=== PATIENT | female | born 1985 | race Caucasian/White ===

== ENCOUNTER 2021-05-06 16:56 | Emergency (ER) | payer SELFPAY ==
[~2021-05-06] VITALS: Ht 160 cm; Wt 67.6 kg
[~2021-05-06 16:56] MED LIST: IBUP1TAB12 PO
--- NOTE | 2021-05-06 18:13 | PHYS DOC ---
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 She is an incredibly poor historian. She presents here with pain at her left nephrostomy tube site. She reports that someone in the emergency department placed the nephrostomy tube here last week. She cannot tell me the names of any physicians that she is interacted with at this facility. She has not followed up with anyone since she was here. She reports that this was just last week. I was able to review notes, and she left AGAINST MEDICAL ADVICE on 04/07/2021. She had been admitted on 04/04/2021. She was admitted for left hydronephrosis and pyelonephritis. Interventional radiology placed a nephrostomy tube. She has a history of cervical cancer, for which she had previously has been seen at [facility], and she had also previously been seen at [facility]. Notes reviewed from here report that she had been fired from practices at [facility] at and at [facility]. She reports that she has had subjective fevers and chills, no documented fever. She reports nausea, no vomiting. She is unable to tell me when her last bowel movement was. She reports diffuse pain in her entire abdomen as well as left flank pain. She denies chest pain or dyspnea. She has been having yellow urine drainage from her nephrostomy. She reports that she "bleeds all the time" in regards to her vaginal bleeding. She is unable to articulate with any remote certainty when her last menstrual period might have been. She has had what sounds like bilateral salpingectomy as well as an uterine myomectomy. Discharge summary/AMA note indicates that she was given multiple resources for outpatient follow-up, but she has made no attempt to do this. She reports that she and her boyfriend have been trying to dress her nephrostomy tube site and clean the site, and she has multiple layers of wadded up tape covering the skin around the nephrostomy tube. Review of Systems: Review of Systems: Constitutional: Subjective fevers and chills HENT: Denies sore throat. [] Respiratory: Denies cough or shortness of breath. [] Cardiovascular: Denies chest pain or edema. [] GI: Abdominal pain, nausea, denies bowel habit changes, denies vomiting : Dysuria, cloudy urine, pain at left flank and nephrostomy tube site Musculoskeletal: Left flank pain, diffuse myalgias Integument: Denies rash or open wounds or skin redness Neurologic: Denies headache, focal weakness or sensory changes. [] Psychiatric: Anxiety Heart Score: C/O Chest Pain: No Risk Factors: Risk Factors: DM, Current or recent (<one month) smoker, HTN, HLP, family history of CAD, obesity. Risk Scores: Score 0 - 3: 2.5% MACE over next 6 weeks - Discharge Home Score 4 - 6: 20.3% MACE over next 6 weeks - Admit for Clinical Observation Score 7 - 10: 72.7% MACE over next 6 weeks - Early Invasive Strategies Allergies: Allergies: Allergies Coded Allergies Type Severity Reaction Last Updated Verified haloperidol Allergy Severe 05/06/21 Yes diphenhydramine Allergy Intermediate 05/06/21 Yes fentanyl Allergy Intermediate 05/06/21 Yes morphine Allergy Intermediate 05/06/21 Yes prochlorperazine Allergy Intermediate 05/06/21 Yes Physical Exam: PE: Constitutional: Well developed, well nourished, no acute distress, non-toxic appearance. [] HENT: Normocephalic, atraumatic Eyes: Conjunctiva normal, no discharge. Sclera are anicteric. Neck: Normal range of motion, no tenderness, supple, no stridor. No meningisus. Trachea is midline. Cardiovascular:Heart rate regular rhythm, +2 radial and +2 posterior tibial pulses bilateral Lungs & Thorax: Bilateral breath sounds clear to auscultation [] Abdomen: Abdomen is soft, nondistended, normal bowel sounds, diffuse and nonfocal tenderness to palpation. Left CVA tenderness is noted. No flank or abdominal ecchymoses are noted. No palpable pulsatile mass noted. Skin: Warm, dry, no erythema, no rash. There is no warmth, erythema or drainage around the left flank/nephrostomy tube site Back: Left CVA tenderness. Nephrostomy tube is in place on her left flank, there is no warmth, erythema, no purulent drainage or bleeding around the tube site Extremities: No tenderness, no cyanosis, no clubbing, ROM intact, no edema. Calf tenderness Neurologic: She is awake, alert, oriented x3, ambulatory to steady gait, moves all 4 extremities equally, gross sensation is intact, gross motor intact, speech is fluent Psychologic: Anxious EKG: EKG: [] Radiology/Procedures: Radiology/Procedures: IMAGING REPORT Signed PATIENT: SARA AQUINO ACCOUNT: [id number] : 1985 LOCATION: ER AGE: 36 SEX: F EXAM STATUS: REG ER ORD. PHYSICIAN: ROX WHEELER DO REASON: abd pain, left nephrostomy PROCEDURE: CT ABD PELV W/ IV CONTRST ONLY Exam: CT abdomen/pelvis with intravenous contrast Indication: Abdominal pain, left nephrostomy Comparison: CT abdomen pelvis 04/03/2021 Technique: Helical CT imaging performed of the abdomen and pelvis after the intravenous administration of 75 mL Omnipaque 300 contrast. Sagittal and coronal reformats were obtained. One or more of the following individualized dose reduction techniques were utilized for this examination: 1. Automated exposure control 2. Adjustment of the mA and/or kV according to patient size 3. Use of iterative reconstruction technique. Findings: Lower chest: Normal. Liver: Normal. Gallbladder/Biliary Tree: Normal. Pancreas: Normal. Spleen: Normal. Adrenal Glands: Normal. Kidneys/Ureters/Bladder: There has been placement of a left percutaneous nephrostomy catheter, in appropriate position. Left hydroureteronephrosis has resolved. There is mild residual prominence of the distal left ureter, which is partially obscured by soft tissue prominence at the cervix. Right kidney and right ureter are normal. Bladder is normal. Reproductive Organs: Uterus is present. Ill-defined soft tissue prominence at the cervix on the left, unchanged. Ovaries are not visualized. Stomach, small bowel, and colon: The stomach is normal. No small bowel obstruction. There are a few prominent loops of small bowel in the left upper quadrant without transition point.. The appendix is normal. Mild diffuse wall thickening versus incomplete distention of the left hemicolon, unchanged. Vasculature: Abdominal aorta is normal in caliber. Lymph Nodes: Abnormal enlarged left external iliac chain lymph node has decreased in size, now 2.6 x 2.2 cm, previously 2.9 x 2.6 cm. Unchanged mildly enlarged bilateral pelvic sidewall lymph nodes measuring up to 1 cm short axis. Additional small left common iliac chain and periaortic lymph nodes are unchanged. Peritoneum and retroperitoneum: No free fluid or free air. Bones: No acute osseous abnormality. Impression: 1. Interval placement of left percutaneous nephrostomy. Resolution of left hydronephrosis. Mild left renal atrophy. 2. Ill-defined soft tissue prominence along the left aspect of the cervix, likely corresponding with the patient's reported cervical cancer. 3. Mild lymphadenopathy in the pelvis with slightly decreased size of a large abnormal left external iliac chain lymph node and other smaller unchanged left iliac chain and pelvic sidewall lymph nodes. 4. Mild diffuse wall thickening versus incomplete distention of the left hemicolon, unchanged. Electronically signed by: Cornelia Erwin MD (05/06/2021 9:16 PM) [id number] DICTATED and SIGNED BY: CORNELIA ERWIN MD DATE: 05/06/219245KTI6 0 Course & Med Decision Making: Course & Med Decision Making Pertinent Labs and Imaging studies reviewed. (See chart for details) The patient was given IV fluids, IV Reglan, as well as IV Dilaudid. She has not vomited here. She remained stable, vital signs are stable, she has no evidence of acute surgical abdominal exam. Nephrostomy tube is in place, there is no evidence of any recurrent hydronephrosis. Laboratory exams are unremarkable. She manifest no evidence of obvious acute infection. I have discussed all of the findings, differential diagnosis and plan of care with her. I contacted the on-call PA for urology, she reports that the patient will be able to follow-up in the office for further discussion of care. I gave the patient the number for the urology office. The nephrostomy tube may stay in place for up to 12 weeks. She has had this in place for about 4 weeks now at this time. I told the patient that she absolutely must follow-up with urology, she [place] must follow- up with [facility] and [facility]. She reports that she absolutely refused to go back to [facility] or to [facility]. I told her that she may want to contact [facility] to see if they are able to help her. She was told to contact Dr. Coto, who followed her here while she was admitted to the hospital, to see if he may assist her in appropriate follow-up measures as well. Currently there is no indication for admission to the hospital based on her current clinical presentation. I did prescribe a small amount of [place] for discharge, as well as Reglan for her nausea and vomiting symptoms. I requested that the nurses give her dressing supplies for home. Strict return precautions are given, she verbalizes understanding. Dragon Disclaimer: Abiel Disclaimer: This electronic medical record was generated, in whole or in part, using a voice recognition dictation system. Departure Departure Impression: Primary Impression: Nephrostomy status Additional Impressions: Left flank pain Hydronephrosis of left kidney History of cervical cancer Disposition: 01 HOME / SELF CARE / HOMELESS Condition: STABLE Referrals: NO PCP (PCP) VERONICA HERNANDEZ MD,ANAY Yanes MD Patient Instructions: Nephrostomy, Care After Additional Instructions: Please keep your tube in place. Keep the skin around the tube clean and dry. Use the medication as directed. Stay well hydrated. Please contact the urology clinic ([phone]) this week to arrange for follow up. Please also follow up with Dr. Coto to help with your cervical cancer. Return for fever of 100.4 or higher, you develop severe skin redness, swelling, yellow or green drainage from the tube site, if he develop more severe abdominal pain, uncontrolled vomiting, dehydration or other concerns. Scripts Metoclopramide Hcl (REGLAN) 10 Mg Tablet 1 TAB PO TID for vomiting, #20 TAB 0 Refills before food and bedtime Prov: ROX WHEELER DO 05/06/21 Hydrocodone Bit/Acetaminophen (HYDROCODONE-APAP 5-325 ) 1 Tab Tablet 1 TAB PO PRN Q6HRS PRN for PAIN, #15 TAB 0 Refills Prov: ROX WHEELER DO 05/06/21 ROX WHEELER DO May 06, 2021 18:13
[2021-05-06] MEDS ORDERED: METOCLOPRAMIDE HCL 10 MG/2 ML VIAL. IVP ONE (18:30)
[2021-05-06] MEDS ORDERED: IV NORMAL SALINE 1000ML BAG 1,000 ML IV ONE (18:30)
[2021-05-06] MEDS ORDERED: HYDROmorphone 2 MG/ML INJ. IVP ONE (18:45)
[2021-05-06 19:00] LABS: AMPHETAMINE/METHAMPHETAMINE NEG (NEG); BARBITURATES NEG (NEG); BENZODIAZEPINES NEG (NEG); CANNABINOIDS NEG (NEG); COCAINE NEG (NEG); METHADONE NEG (NEG); OPIATES NEG (NEG); PHENCYCLIDINE NEG (NEG)
[2021-05-06 19:03] LABS: BILIRUBIN,URINE NEGATIVE (NEG); CLARITY,URINE CLEAR; COLOR,URINE YELLOW; NITRITE,URINE NEGATIVE (NEG); PROTEIN,URINE 30 mg/dL (NEG-TRACE); UROBILINOGEN,URINE 0.2 mg/dL (0.2 mg/dL)
[2021-05-06 19:04] LABS: RBC,URINE 20-40 /HPF (0-2)
[2021-05-06 19:05] LABS: BACTERIA,URINE FEW /HPF (0-FEW)
[2021-05-06 19:13] LABS: BASO % 1 % (0-3); EOS % 0 % (0-3); HEMATOCRIT 46.3 % (36.0-47.0); HEMOGLOBIN 15.6 g/dL (12.0-15.5); LYMPH # 1.9 x10^3/uL (1.0-4.8); LYMPH % 26 % (24-48); MEAN CORPUSCULAR HEMOGLOBIN 27 pg (25-35); MEAN CORPUSCULAR HGB CONC 34 g/dL (31-37); MEAN CORPUSCULAR VOLUME 81 fL (79-100); MONO # 0.7 x10^3/uL (0.0-1.1); MONO % 10 % (0-9); NEUT # 4.5 x10^3/uL (1.8-7.7); NEUT % 62 % (31-73); PLATELET COUNT 326 x10^3/uL (140-400); RED BLOOD COUNT 5.73 x10^6/uL (3.50-5.40); RED CELL DISTRIBUTION WIDTH 15.7 % (11.5-14.5); WHITE BLOOD COUNT 7.2 x10^3/uL (4.0-11.0)
[2021-05-06 19:14] LABS: BASO # 0.1 x10^3/uL (0.0-0.2)
[2021-05-06 19:23] LABS: PREG TEST PT QUAL NEGATIVE (NEG)
[2021-05-06 19:32] LABS: CALCIUM 8.7 mg/dL (8.5-10.1); CREATININE 0.9 mg/dL (0.6-1.0); GFR 70.1; POTASSIUM 4.6 mmol/L (3.5-5.1)
[2021-05-06 19:38] LABS: ALBUMIN 4.1 g/dL (3.4-5.0); MAGNESIUM 2.2 mg/dL (1.8-2.4); TOTAL BILIRUBIN 0.1 mg/dL (0.2-1.0); TOTAL PROTEIN 8.3 g/dL (6.4-8.2)
[2021-05-06] MEDS ORDERED: IOHEXOL 300 MG/ML 100ML VIAL. IV ONE (20:00)
--- NOTE | 2021-05-06 21:18 | RAD ---
Exam: CT abdomen/pelvis with intravenous contrast Indication: Abdominal pain, left nephrostomy Comparison: CT abdomen pelvis 04/03/2021 Technique: Helical CT imaging performed of the abdomen and pelvis after the intravenous administratio n of 75 mL Omnipaque 300 contrast. Sagittal and coronal reformats were obtained. One or more of the following individualized dose reduction techniques were utilized for this examinat ion: 1. Automated exposure control 2. Adjustment of the mA and/or kV according to patient size 3. Use of iterative reconstruction technique. Findings: Lower chest: Normal. Liver: Normal. Gallbladder/Biliary Tree: Normal. Pancreas: Normal. Spleen: Normal. Adrenal Glands: Normal. Kidneys/Ureters/Bladder: There has been placement of a left percutaneous nephrostomy catheter, in rajat ropriate position. Left hydroureteronephrosis has resolved. There is mild residual prominence of the distal left ureter, which is partially obscured by soft tissue prominence at the cervix. Right kidney and right ureter are normal. Bladder is normal. Reproductive Organs: Uterus is present. Ill-defined soft tissue prominence at the cervix on the left, unchanged. Ovaries are not visualized. Stomach, small bowel, and colon: The stomach is normal. No small bowel obstruction. There are a few p rominent loops of small bowel in the left upper quadrant without transition point.. The appendix is n ormal. Mild diffuse wall thickening versus incomplete distention of the left hemicolon, unchanged. Vasculature: Abdominal aorta is normal in caliber. Lymph Nodes: Abnormal enlarged left external iliac chain lymph node has decreased in size, now 2.6 x 2.2 cm, previously 2.9 x 2.6 cm. Unchanged mildly enlarged bilateral pelvic sidewall lymph nodes shnae uring up to 1 cm short axis. Additional small left common iliac chain and periaortic lymph nodes are unchanged. Peritoneum and retroperitoneum: No free fluid or free air. Bones: No acute osseous abnormality. Impression: 1. Interval placement of left percutaneous nephrostomy. Resolution of left hydronephrosis. Mild left renal atrophy. 2. Ill-defined soft tissue prominence along the left aspect of the cervix, likely corresponding with the patient's reported cervical cancer. 3. Mild lymphadenopathy in the pelvis with slightly decreased size of a large abnormal left external iliac chain lymph node and other smaller unchanged left iliac chain and pelvic sidewall lymph nodes. 4. Mild diffuse wall thickening versus incomplete distention of the left hemicolon, unchanged. Electronically signed by: Cornelia Erwin MD (05/06/2021 9:16 PM) [id number]
[2021-05-06] MEDS ORDERED: FUROSEMIDE 20 MG/2 ML VIAL. IVP ONE (21:30)
[2021-05-06] MEDS ORDERED: HYDROcodone/APAP 5/325MG 1 TAB TABLET PO ONE (23:00)
[2021-05-06] MEDS ORDERED: METO10TA81 PO (23:05)
[2021-05-06] MEDS ORDERED: HYDR-2761 PO (23:05)
[2021-05-06 23:30] VITALS: BP 135/96
== END 2021-05-07 00:08 | disposition home or self-care (01) ==
LOC: ER 16:56
DX: N13.30 Unspecified hydronephrosis (principal); R10.84 Generalized abdominal pain; Z93.6 Other artificial openings of urinary tract status; Z85.41 Personal history of malignant neoplasm of cervix uteri; F17.200 Nicotine dependence, unspecified, uncomplicated
CPT/HCPCS: 36415; 74177; 80053; 80307; 81001; 83605; 83690; 83735; 84703; 85025; 87040; 96361; 96374; 96375; 99285; G0480; J1170; J2765; J7030; Q9967

== ENCOUNTER 2021-07-29 00:46 | Inpatient (IN) | payer SELFPAY ==
[~2021-07-29] VITALS: Ht 160 cm; Wt 67.1 kg
[2021-07-29] VITALS (12 sets, daily range): BP systolic 112–152; BP diastolic 72–100
[~2021-07-29 00:46] MED LIST changes: +HYDR-2761 PO; +METO10TA81 PO
[2021-07-29 01:21] LABS: BASO # 0.1 x10^3/uL (0.0-0.2); BASO % 0 % (0-3); EOS # 0.1 x10^3/uL (0.0-0.7); EOS % 0 % (0-3); HEMATOCRIT 42.3 % (36.0-47.0); HEMOGLOBIN 14.2 g/dL (12.0-15.5); LYMPH % 5 % (24-48); MEAN CORPUSCULAR HEMOGLOBIN 27 pg (25-35); MEAN CORPUSCULAR HGB CONC 34 g/dL (31-37); MEAN CORPUSCULAR VOLUME 80 fL (79-100); MONO # 1.5 x10^3/uL (0.0-1.1); MONO % 7 % (0-9); NEUT % 88 % (31-73); PLATELET COUNT 496 x10^3/uL (140-400); RED BLOOD COUNT 5.31 x10^6/uL (3.50-5.40); RED CELL DISTRIBUTION WIDTH 14.7 % (11.5-14.5); WHITE BLOOD COUNT 21.6 x10^3/uL (4.0-11.0)
[2021-07-29] MEDS ORDERED: HYDROmorphone 2 MG/ML INJ. IVP ONE ×2 (01:30→03:00)
[2021-07-29] MEDS ORDERED: ONDANSETRON PF 4 MG/2 ML VIAL. IVP ONE ×2 (01:30→04:30)
[2021-07-29 01:32] LABS: CALCIUM 8.7 mg/dL (8.5-10.1); CREATININE 1.1 mg/dL (0.6-1.0); GFR 55.6; POTASSIUM 3.9 mmol/L (3.5-5.1)
[2021-07-29 01:35] LABS: PREG TEST PT QUAL NEGATIVE (NEG)
[2021-07-29 01:38] LABS: ALBUMIN 3.5 g/dL (3.4-5.0); ALBUMIN/GLOBULIN RATIO 0.9 (1.0-1.7); TOTAL BILIRUBIN 0.3 mg/dL (0.2-1.0); TOTAL PROTEIN 7.6 g/dL (6.4-8.2)
[2021-07-29] MEDS ORDERED: cefTRIAXone IV Push 1 GM VIAL. IVP ONE (02:00)
[2021-07-29] MEDS ORDERED: IOHEXOL 300 MG/ML 100ML VIAL. IV ONE (02:00)
[2021-07-29] MEDS ORDERED: CONTRAST GIVEN. MC PRN ×2 (02:00→14:00)
--- NOTE | 2021-07-29 02:49 | RAD ---
EXAM: CT Abdomen and Pelvis with IV contrast CLINICAL HISTORY: Reason: L nephr tube pulled out; L flank pain; suspect hydroureteronephrosis / Spl. Instructions: OMNI 300,60ML / History: . COMPARISON: none TECHNIQUE: Helical CT of the abdomen and pelvis was performed following the administration of intrave nous contrast. Axial, coronal and sagittal reformatted images were generated. PQRS compliance statement - One or more of the following individualized dose reduction techniques wer e utilized for this study: 1. Automated exposure control 2. Adjustment of the mA and/or kV according to patient size 3. Use of iterative reconstruction technique FINDINGS: Lower Chest: Lung bases are clear. Abdomen and Pelvis: No focal liver lesion. Gallbladder is normal. No biliary ductal dilatation. Pancreas, spleen is unrem arkable. Adrenal glands are normal. There is infiltration about the left kidney. Moderate left hydronephrosis and hydroureter. Soft tissu e infiltration in the region of the cervix. Left nephrostomy tube is seen. Appendix is not seen. Moderate colonic stool content is seen. No small or large bowel dilatation. No bowel obstruction. Pelvic lymphadenopathy is again seen, mildly progressed. Adjacent to the right cecum there is a 2.8 x 2.5 cm mass. Right pelvic chest wall lymph node measures 1.7 x 1.2 cm, previously 1.4 x 1 cm. Bones: No aggressive osseous lesion is seen. IMPRESSION: 1. There is moderate left hydronephrosis and hydroureter to the level of the soft tissue density at the region of the cervix likely cervical cancer. Infiltration about the left kidney may be seen with superimposed pyelonephritis, new compared to 05/06/2021. 2. Iliac chain and pelvic sidewall lymphadenopathy is again seen, mildly progressed compared to 05/06. Electronically signed by: Tray Arevalo MD (07/29/2021 2:46 AM) [facility]
[2021-07-29] MEDS ORDERED: IV DEXTROSE 5%-LACT RINGERS 1,000 ML IV ONE ×2 (03:00→05:30)
[2021-07-29 03:57] LABS: BARBITURATES NEG (NEG); BENZODIAZEPINES NEG (NEG); CANNABINOIDS NEG (NEG); COCAINE NEG (NEG); METHADONE NEG (NEG); OPIATES POS (NEG); PHENCYCLIDINE NEG (NEG)
[2021-07-29 04:15] LABS: AMPHETAMINE/METHAMPHETAMINE NEG (NEG)
[2021-07-29 04:21] LABS: BACTERIA,URINE 0 /HPF (0-FEW); RBC,URINE 0 /HPF (0-2); WBC,URINE OCC /HPF (0-4)
--- NOTE | 2021-07-29 04:26 | EKG ---
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
--- NOTE | 2021-07-29 04:28 | PHYS DOC ---
Past Medical History Additional Past Medical Histor: UTERINE CANCER, CERVICAL CANCER, [place] Past Surgical History: No Surgical History Additional Past Surgical Histo: FALLOPIAN TUBES REMOVED Smoking Status: Never Smoker Alcohol Use: None Adult General Chief Complaint Chief Complaint: FLANK PAIN HPI HPI The patient is a 36-year-old female with a complicated and somewhat unclear medical history. In 2018, the patient was diagnosed with cervical and endometrial cancer after a colposcopy. She was referred to Dr. Garcia at [facility]. Under his care she elected against a hysterectomy because she desired to keep her fertility. Chemotherapy was discussed but she did not really want to start chemo and then lost her insurance. Prior notes at this facility make reference to the patient having been fired from [facility] at and [facility]. What is primarily clear is that, whatever her barriers to care, Ms. Wilson has not appropriately sought necessary follow-up care for her cancer but has allowed it to progress gradually without any of the intervention which typically would be performed on a young woman with gynecologic cancer. Instead, she has pursued a scatter shot approach of presenting to emergency departments at different hospitals with acute complaints related to her progressively worsening cancer. In March 2021, patient presented to this facility with severe flank pain and was found to have hydronephrosis secondary to left ureteral obstruction felt se condary to her progressive cancer. A nephrostomy tube was ultimately placed by interventional radiology. This was only supposed to remain in place for 3 months but was still in place earlier this evening when it fell out suddenly at home. After loss of the nephrostomy tube, patient experienced rapidly progressive severe left flank pain. She is moaning and rocking back and forth severe discom fort during initial evaluation. She is tachycardic. Other vital signs are generally appropriate. Review of Systems Review of Systems A 12 point review of systems was completed and was negative except where noted in HPI above. Current Medications Current Medications Current Medications Medications (Trade) Dose Ordered Sig/Harsh Start Time Stop Time Status Last Admin Dose Admin Ceftriaxone Sodium (Rocephin) 1 gm 1X ONCE 07/29/21 02:00 07/29/21 02:01 DC 07/29/21 02:00 1 GM Dextrose/Lactated Ringer's 1,000 ml @ 125 mls/hr 1X ONCE 07/29/21 03:00 07/29/21 10:59 07/29/21 03:00 125 MLS/HR Hydromorphone HCl (Dilaudid) 1 mg 1X ONCE 07/29/21 03:00 07/29/21 03:01 DC 07/29/21 02:52 1 MG Info (CONTRAST GIVEN -- Rx MONITORING) 1 each PRN DAILY PRN 07/29/21 02:00 07/31/21 01:59 Iohexol (Omnipaque 300 Mg/ml) 75 ml 1X ONCE 07/29/21 02:00 07/29/21 02:01 DC Ondansetron HCl (Zofran) 4 mg 1X ONCE 07/29/21 01:30 07/29/21 01:31 DC 07/29/21 01:07 4 MG Allergies Allergies Allergies Coded Allergies Type Severity Reaction Last Updated Verified haloperidol Allergy Severe 07/29/21 Yes diphenhydramine Allergy Intermediate 07/29/21 Yes fentanyl Allergy Intermediate 07/29/21 Yes morphine Allergy Intermediate 07/29/21 Yes prochlorperazine Allergy Intermediate 07/29/21 Yes Physical Exam Physical Exam 36-year-old female appearing nontoxic but in moderate distress secondary to left flank pain. Head is normocephalic and atraumatic. Neck is supple and nontender. Oropharynx is moist. Lungs are clear to auscultation at all stations. There is a normal S1 and S2 without rubs or gallops and capillary refill is appropriate, less than 2 seconds globally. Abdomen is soft, nontender and nondistended. Skin is warm and dry without cyanosis, clubbing or edema. Psychiatrically, the patient demonstrates appropriate mood and affect and is alert. Evaluation of the back reveals nephrostomy tube site without erythema, warmth, swelling, purulent or any other drainage, or any acute process noted. Current Patient Data Vital Signs Vital Signs Date Time Temp Pulse Resp B/P (MAP) Pulse Ox O2 Delivery O2 Flow Rate FiO2 07/29/21 02:52 18 07/29/21 02:28 98.6 147 176/114 (134) 96 Room Air 98.6 Lab Values Laboratory Tests Test 07/29/21 01:14 07/29/21 01:50 White Blood Count 21.6 x10^3/uL (4.0-11.0) H Red Blood Count 5.31 x10^6/uL (3.50-5.40) Hemoglobin 14.2 g/dL (12.0-15.5) Hematocrit 42.3 % (36.0-47.0) Mean Corpuscular Volume 80 fL (79-100) Mean Corpuscular Hemoglobin 27 pg (25-35) Mean Corpuscular Hemoglobin Concent 34 g/dL (31-37) Red Cell Distribution Width 14.7 % (11.5-14.5) H Platelet Count 496 x10^3/uL (140-400) H Neutrophils (%) (Auto) 88 % (31-73) H Lymphocytes (%) (Auto) 5 % (24-48) L Monocytes (%) (Auto) 7 % (0-9) Eosinophils (%) (Auto) 0 % (0-3) Basophils (%) (Auto) 0 % (0-3) Neutrophils # (Auto) 19.0 x10^3/uL (1.8-7.7) H Lymphocytes # (Auto) 1.0 x10^3/uL (1.0-4.8) Monocytes # (Auto) 1.5 x10^3/uL (0.0-1.1) H Eosinophils # (Auto) 0.1 x10^3/uL (0.0-0.7) Basophils # (Auto) 0.1 x10^3/uL (0.0-0.2) Sodium Level 136 mmol/L (136-145) Potassium Level 3.9 mmol/L (3.5-5.1) Chloride Level 102 mmol/L (98-107) Carbon Dioxide Level 22 mmol/L (21-32) Anion Gap 12 (6-14) Blood Urea Nitrogen 16 mg/dL (7-20) Creatinine 1.1 mg/dL (0.6-1.0) H Estimated GFR (Cockcroft-Gault) 55.6 BUN/Creatinine Ratio 15 (6-20) Glucose Level 124 mg/dL (70-99) H Calcium Level 8.7 mg/dL (8.5-10.1) Total Bilirubin 0.3 mg/dL (0.2-1.0) Aspartate Amino Transferase (AST) 11 U/L (15-37) L Alanine Aminotransferase (ALT) 20 U/L (14-59) Alkaline Phosphatase 113 U/L (46-116) Troponin I High Sensitivity 4 ng/L (4-50) Total Protein 7.6 g/dL (6.4-8.2) Albumin 3.5 g/dL (3.4-5.0) Albumin/Globulin Ratio 0.9 (1.0-1.7) L Serum Test, Qualitative Negative (NEG) Lactic Acid Level 1.4 mmol/L (0.4-2.0) Laboratory Tests 07/29/21 01:14 Laboratory Tests 07/29/21 01:14 EKG EKG Sinus rhythm, rate 140, no acute ST elevation or depression, AK 136, QRS 66, QTc 422, EP interpretation. Nonischemic tracing, intervals appropriate. Radiology/Procedures Radiology/Procedures EXAM: CT Abdomen and Pelvis with IV contrast CLINICAL HISTORY: Reason: L nephr tube pulled out; L flank pain; suspect hydroureteronephrosis / Spl. Instructions: OMNI 300,60ML / History: . COMPARISON: none TECHNIQUE: Helical CT of the abdomen and pelvis was performed following the administration of intravenous contrast. Axial, coronal and sagittal reformatted images were generated. PQRS compliance statement - One or more of the following individualized dose reduction techniques were utilized for this study: 1. Automated exposure control 2. Adjustment of the mA and/or kV according to patient size 3. Use of iterative reconstruction technique FINDINGS: Lower Chest: Lung bases are clear. Abdomen and Pelvis: No focal liver lesion. Gallbladder is normal. No biliary ductal dilatation. Pancreas, spleen is unremarkable. Adrenal glands are normal. There is infiltration about the left kidney. Moderate left hydronephrosis and hydroureter. Soft tissue infiltration in the region of the cervix. Left nephrostomy tube is seen. Appendix is not seen. Moderate colonic stool content is seen. No small or large bowel dilatation. No bowel obstruction. Pelvic lymphadenopathy is again seen, mildly progressed. Adjacent to the right cecum there is a 2.8 x 2.5 cm mass. Right pelvic chest wall lymph node measures 1.7 x 1.2 cm, previously 1.4 x 1 cm. Bones: No aggressive osseous lesion is seen. IMPRESSION: 1. There is moderate left hydronephrosis and hydroureter to the level of the soft tissue density at the region of the cervix likely cervical cancer. Infiltration about the left kidney may be seen with superimposed pyelonephritis, new compared to 05/06/2021. 2. Iliac chain and pelvic sidewall lymphadenopathy is again seen, mildly progressed compared to 05/06/2021. Electronically signed by: Tray Carbone MD (07/29/2021 2:46 AM) [facility] DICTATED and SIGNED BY: TRAY CARBONE MD DATE: 07/29/21 0234 [] Course & Med Decision Making Course & Med Decision Making Work-up as above. Patient has a marked leukocytosis but other labs are unremarkable. CT read as concerning for left hydronephrosis with possible superimposed pyelonephritis, but I discussed CT findings in detail with Dr. Lexie vasquez of interventional radiology who reviewed imaging with me and feels that findings around the left kidney are more compatible with fluid leakage than inflammatory stranding. Additionally, urinalysis does not suggest infection. Favor leukocytosis being due to stress demargination in the setting of severe discomfort. Have opted to cover with a dose of Rocephin after cultures to address the possibility of pyelonephritis, though lower suspicion. Case discussed with Dr. Castro of urology who recommends urgent nephrostomy tube replacement. Case discussed as above with Dr. Turner of interventional radiology who is agreeable to replacing the patient's nephrostomy tube. I explained to Dr. Turner patient is very tachycardic, probably due to uncontrolled pain, and that all pain control modalities thus far have been unsuccessful. He plans urgent replacement of the nephrostomy tube later this morning. Graciously accepted for admission by Dr. Swartz. Note: Despite the patient's tachycardia, I am being judicious with IV fluids as I feel they will likely worsen the patient's pain and left-sided hydronephrosis until her nephrostomy tube can be replaced. Dragon Disclaimer Dragon Disclaimer This electronic medical record was generated, in whole or in part, using a voice recognition dictation system. Departure Departure Impression: Primary Impression: Left flank pain Additional Impression: Hydronephrosis of left kidney Disposition: ADMITTED INPATIENT Condition: STABLE Referrals: NO PCP (PCP) Problem Qualifiers HAIDER RAMOS MD Jul 29, 2021 04:28
[2021-07-29] MEDS ORDERED: KETAMINE HCL IN NACL, ISO-OSM 50 MG/5 ML SYRINGE IV ONE (05:00)
[2021-07-29] MEDS ORDERED: ONDANSETRON PF 4 MG/2 ML VIAL. IVP PRN (05:15)
[2021-07-29] MEDS ORDERED: KETOROLAC 15 MG/ML VIAL. IVP PRN (05:15)
[2021-07-29] MEDS: HYDROmorphone 2 MG/ML INJ. IVP PRN ×6 (05:26→21:46)
[2021-07-29] MEDS ORDERED: IBUP200C9 PO (05:38)
[2021-07-29] MEDS ORDERED: METOCLOPRAMIDE HCL 10 MG/2 ML VIAL. IM PRN (07:15)
--- NOTE | 2021-07-29 07:15 | NUR ---
BIANKA Colvin informed this RN that she visualized patient laying herself onto bathroom floor. When asking patient why she did this, patient stated "it feels good because it's cool." Patient eventually moved herself back to her bed. Will pass along to day RN, will also notify Dr. Swartz.
--- NOTE | 2021-07-29 08:19 | PDOC1 ---
History and Physical Date of Service: DOS: DATE: 07/29/21 TIME: 08:14 Chief Complaint: Chief Complain: Flank pain History of Present Illness: HPI: 36-year-old female with past medical history of cervical and endometrial cancer diagnosed in 2018 and she was referred to [facility] for evaluation. Patient did have a fertility sparing surgery but did not undergo chemotherapy due to insurance issues. She comes to the ED today after dislodgment of her percutaneous nephrostomy tube. She describes left flank pain. Denies any fevers, nausea vomiting, diarrhea, hematuria or active bleeding. This was a nephrostomy tube placed in March 2021 at this facility for hydronephrosis due to left ureteral obstruction secondary to progression of her cancer. Upon my examination patient was lying in bed resting comfortably, when I attempted a physical exam she immediately was guarding her entire body due to pain. She describes her pain as generalized all over her body not just her flank area. Pain is 10 out of 10 at this time. Past Medical/Surgical History: PMH/PSH: Past Medical Histor: UTERINE CANCER, CERVICAL CANCER, [place] Past Surgical History: FALLOPIAN TUBES REMOVED Allergies: Allergies: Coded Allergies: haloperidol (Verified Allergy, Severe, 07/29/21) diphenhydramine (Verified Allergy, Intermediate, 07/29/21) fentanyl (Verified Allergy, Intermediate, 07/29/21) morphine (Verified Allergy, Intermediate, 07/29/21) hydromorphone ok prochlorperazine (Verified Allergy, Intermediate, 07/29/21) Family History: Family History: Reviewed with no relative findings in the chart Social History: Social History: Smoking Status: Never Smoker Alcohol Use: None Current Medications: Current Medications Current Medications Ondansetron HCl (Zofran) 4 mg 1X ONCE IVP Last administered on 07/29/21at 0 1:07; Start 07/29/21 at 01:30; Stop 07/29/21 at 01:31; Status DC Hydromorphone HCl (Dilaudid) 1 mg 1X ONCE IVP Last administered on 07/29/21at 01:06; Start 07/29/21 at 01:30; Stop 07/29/21 at 01:31; Status DC Ceftriaxone Sodium (Rocephin) 1 gm 1X ONCE IVP Last administered on 07/29/21at 02:00; Start 07/29/21 at 02:00; Stop 07/29/21 at 02:01; Status DC Iohexol (Omnipaque 300 Mg/ml) 75 ml 1X ONCE IV ; Start 07/29/21 at 02:00; Stop 07/29/21 at 02:01; Status DC Info (CONTRAST GIVEN -- Rx MONITORING) 1 each PRN DAILY PRN MC SEE COMMENTS; Start 07/29/21 at 02:00; Stop 07/31/21 at 01:59 Dextrose/Lactated Ringer's 1,000 ml @ 125 mls/hr 1X ONCE IV Last administered on 07/29/21at 03:00; Start 07/29/21 at 03:00; Stop 07/29/21 at 10:59 Hydromorphone HCl (Dilaudid) 1 mg 1X ONCE IVP Last administered on 07/29/21at 02:52; Start 07/29/21 at 03:00; Stop 07/29/21 at 03:01; Status DC Ondansetron HCl (Zofran) 4 mg 1X ONCE IVP Last administered on 07/29/21at 04:18; Start 07/29/21 at 04:30; Stop 07/29/21 at 04:31; Status DC Ketamine HCl (Ketamine) 16 mg 1X ONCE IV Last administered on 07/29/21at 04:24; Start 07/29/21 at 05:00; Stop 07/29/21 at 05:01; Status DC Ondansetron HCl (Zofran) 4 mg PRN Q8HRS PRN IVP NAUSEA/VOMITING 1ST CHOICE; Start 07/29/21 at 05:15; Stop 07/30/21 at 05:14 Hydromorphone HCl (Dilaudid) 0.5 mg PRN Q2HRS PRN IVP SEVERE PAIN 7-10 Last administered on 07/29/21at 07:36; Start 07/29/21 at 05:15 Ketorolac Tromethamine (Toradol 15mg Vial) 15 mg PRN Q6HRS PRN IVP MODERATE PAIN 4-6; Start 07/29/21 at 05:15; Stop 08/03/21 at 05:14 Dextrose/Lactated Ringer's 1,000 ml @ 125 mls/hr 1X ONCE IV ; Start 07/29/21 at 05:30; Stop 07/29/21 at 13:29 Metoclopramide HCl (Reglan Vial) 10 mg PRN Q8HRS PRN IM NAUSEA/VOMITING Last administered on 07/29/21at 07:28; Start 07/29/21 at 07:15 Active Scripts Active Reglan (Metoclopramide Hcl) 10 Mg Tablet 1 Tab PO TID before food and bedtime Reported Advil (Ibuprofen) 200 Mg Capsule 400 Mg PO PRN TID PRN Advil Pm Caplet (Ibuprofen/Diphenhydramine Cit) 1 Each Tablet 2 Each PO HS ROS: Review of Systems Review of System REVIEW OF SYSTEMS: GENERAL: Denies weakness SKIN: No bruising, hair changes or rashes. EYES: No blurred, double or loss of vision. NOSE AND THROAT: No history of nosebleeds, hoarseness or sore throat. HEART: No history of palpitations, chest pain or shortness of breath on exertion. LUNGS: Denies cough, hemoptysis, wheezing or shortness of breath. GASTROINTESTINAL: Positive for left flank pain GENITOURINARY: No history of frequency, urgency, hesitancy or nocturia. NEUROLOGIC: Denies history of numbness, tingling, or tremor. PSYCHIATRIC: No history of panic, anxiety or depression. ENDOCRINE: No history of heat or cold intolerance, polyuria or polydipsia. EXTREMITIES: Denies joint pain, pain on walking or stiffness. Physical Exam: Vital Signs: Vital Signs Date Time Temp Pulse Resp B/P (MAP) Pulse Ox O2 Delivery O2 Flow Rate FiO2 07/29/21 07:36 96 Room Air 07/29/21 04:45 99.5 146 20 135/100 (112) 99.5 Physcial Exam: General: Well developed, well nourished, no acute distress, well appearing HEENT: Pupils equally round and reactive to light, EOMI, no discharge, normal conjunctiva Neck: Supple, no nuchal rigidity, no JVD, trachea midline, no tenderness Cardiac: RRR, no murmurs, no gallops, no rubs Chest/Lungs: CTAB, no wheeze, no rhonchi, no crackles Abdomen: soft, non-distended, no guarding, no peritoneal signs, non-tender Back: Left-sided flank pain. Nephrostomy tube site without any signs of acute infection. Extremities: no edema, pulses intact, non-tender,capillary refill <3 sec bilateral upper and lower extremities, Neuro: Alert and oriented x 4, no focal deficits, normal speech Labs: Labs: Laboratory Tests Test 07/29/21 01:14 07/29/21 01:50 07/29/21 03:45 White Blood Count 21.6 x10^3/uL (4.0-11.0) Red Blood Count 5.31 x10^6/uL (3.50-5.40) Hemoglobin 14.2 g/dL (12.0-15.5) Hematocrit 42.3 % (36.0-47.0) Mean Corpuscular Volume 80 fL (79-100) Mean Corpuscular Hemoglobin 27 pg (25-35) Mean Corpuscular Hemoglobin Concent 34 g/dL (31-37) Red Cell Distribution Width 14.7 % (11.5-14.5) Platelet Count 496 x10^3/uL (140-400) Neutrophils (%) (Auto) 88 % (31-73) Lymphocytes (%) (Auto) 5 % (24-48) Monocytes (%) (Auto) 7 % (0-9) Eosinophils (%) (Auto) 0 % (0-3) Basophils (%) (Auto) 0 % (0-3) Neutrophils # (Auto) 19.0 x10^3/uL (1.8-7.7) Lymphocytes # (Auto) 1.0 x10^3/uL (1.0-4.8) Monocytes # (Auto) 1.5 x10^3/uL (0.0-1.1) Eosinophils # (Auto) 0.1 x10^3/uL (0.0-0.7) Basophils # (Auto) 0.1 x10^3/uL (0.0-0.2) Sodium Level 136 mmol/L (136-145) Potassium Level 3.9 mmol/L (3.5-5.1) Chloride Level 102 mmol/L (98-107) Carbon Dioxide Level 22 mmol/L (21-32) Anion Gap 12 (6-14) Blood Urea Nitrogen 16 mg/dL (7-20) Creatinine 1.1 mg/dL (0.6-1.0) Estimated GFR (Cockcroft-Gault) 55.6 BUN/Creatinine Ratio 15 (6-20) Glucose Level 124 mg/dL (70-99) Calcium Level 8.7 mg/dL (8.5-10.1) Total Bilirubin 0.3 mg/dL (0.2-1.0) Aspartate Amino Transf (AST/SGOT) 11 U/L (15-37) Alanine Aminotransferase (ALT/SGPT) 20 U/L (14-59) Alkaline Phosphatase 113 U/L (46-116) Troponin I High Sensitivity 4 ng/L (4-50) Total Protein 7.6 g/dL (6.4-8.2) Albumin 3.5 g/dL (3.4-5.0) Albumin/Globulin Ratio 0.9 (1.0-1.7) Serum Test, Qualitative Negative (NEG) Lactic Acid Level 1.4 mmol/L (0.4-2.0) Urine Collection Type Unknown Urine Color (Auto) Light yellow Urine Turbidity Clear Urine pH (Auto) 6.5 (<5.0-8.0) Urine Specific Kiana >1.050 (1.000-1.030) Urine Protein (Auto) Negative mg/dL (Negative) Urine Glucose (Auto)(UA) Negative mg/dL (Negative) Urine Ketones (Auto) Negative mg/dL (Negative) Urine Blood (Auto) Trace (Negative) Urine Nitrite Negative (Negative) Urine Bilirubin (Auto) Negative (Negative) Urine Urobilinogen (Auto) Normal mg/dL (Normal) Urine Leukocyte Esterase (Auto) Negative (Negative) Urine RBC 0 /HPF (0-2) Urine WBC Occ /HPF (0-4) Urine Squamous Epithelial Cells Few /LPF Urine Bacteria 0 /HPF (0-FEW) Urine Opiates Screen Pos (NEG) Urine Methadone Screen Neg (NEG) Urine Barbiturates Neg (NEG) Urine Phencyclidine Screen Neg (NEG) Urine Amphetamine/Methamphetamine Neg (NEG) Urine Benzodiazepines Screen Neg (NEG) Urine Cocaine Screen Neg (NEG) Urine Cannabinoids Screen Neg (NEG) Urine Ethyl Alcohol Neg (NEG) Laboratory Tests Test 07/29/21 01:14 07/29/21 01:50 07/29/21 03:45 White Blood Count 21.6 x10^3/uL (4.0-11.0) Red Blood Count 5.31 x10^6/uL (3.50-5.40) Hemoglobin 14.2 g/dL (12.0-15.5) Hematocrit 42.3 % (36.0-47.0) Mean Corpuscular Volume 80 fL (79-100) Mean Corpuscular Hemoglobin 27 pg (25-35) Mean Corpuscular Hemoglobin Concent 34 g/dL (31-37) Red Cell Distribution Width 14.7 % (11.5-14.5) Platelet Count 496 x10^3/uL (140-400) Neutrophils (%) (Auto) 88 % (31-73) Lymphocytes (%) (Auto) 5 % (24-48) Monocytes (%) (Auto) 7 % (0-9) Eosinophils (%) (Auto) 0 % (0-3) Basophils (%) (Auto) 0 % (0-3) Neutrophils # (Auto) 19.0 x10^3/uL (1.8-7.7) Lymphocytes # (Auto) 1.0 x10^3/uL (1.0-4.8) Monocytes # (Auto) 1.5 x10^3/uL (0.0-1.1) Eosinophils # (Auto) 0.1 x10^3/uL (0.0-0.7) Basophils # (Auto) 0.1 x10^3/uL (0.0-0.2) Sodium Level 136 mmol/L (136-145) Potassium Level 3.9 mmol/L (3.5-5.1) Chloride Level 102 mmol/L (98-107) Carbon Dioxide Level 22 mmol/L (21-32) Anion Gap 12 (6-14) Blood Urea Nitrogen 16 mg/dL (7-20) Creatinine 1.1 mg/dL (0.6-1.0) Estimated GFR (Cockcroft-Gault) 55.6 BUN/Creatinine Ratio 15 (6-20) Glucose Level 124 mg/dL (70-99) Calcium Level 8.7 mg/dL (8.5-10.1) Total Bilirubin 0.3 mg/dL (0.2-1.0) Aspartate Amino Transf (AST/SGOT) 11 U/L (15-37) Alanine Aminotransferase (ALT/SGPT) 20 U/L (14-59) Alkaline Phosphatase 113 U/L (46-116) Troponin I High Sensitivity 4 ng/L (4-50) Total Protein 7.6 g/dL (6.4-8.2) Albumin 3.5 g/dL (3.4-5.0) Albumin/Globulin Ratio 0.9 (1.0-1.7) Serum Test, Qualitative Negative (NEG) Lactic Acid Level 1.4 mmol/L (0.4-2.0) Urine Collection Type Unknown Urine Color (Auto) Light yellow Urine Turbidity Clear Urine pH (Auto) 6.5 (<5.0-8.0) Urine Specific Kiana >1.050 (1.000-1.030) Urine Protein (Auto) Negative mg/dL (Negative) Urine Glucose (Auto)(UA) Negative mg/dL (Negative) Urine Ketones (Auto) Negative mg/dL (Negative) Urine Blood (Auto) Trace (Negative) Urine Nitrite Negative (Negative) Urine Bilirubin (Auto) Negative (Negative) Urine Urobilinogen (Auto) Normal mg/dL (Normal) Urine Leukocyte Esterase (Auto) Negative (Negative) Urine RBC 0 /HPF (0-2) Urine WBC Occ /HPF (0-4) Urine Squamous Epithelial Cells Few /LPF Urine Bacteria 0 /HPF (0-FEW) Urine Opiates Screen Pos (NEG) Urine Methadone Screen Neg (NEG) Urine Barbiturates Neg (NEG) Urine Phencyclidine Screen Neg (NEG) Urine Amphetamine/Methamphetamine Neg (NEG) Urine Benzodiazepines Screen Neg (NEG) Urine Cocaine Screen Neg (NEG) Urine Cannabinoids Screen Neg (NEG) Urine Ethyl Alcohol Neg (NEG) Images: Images PROCEDURE: CT ABD PELV W/ IV CONTRST ONLY EXAM: CT Abdomen and Pelvis with IV contrast CLINICAL HISTORY: Reason: L nephr tube pulled out; L flank pain; suspect hydroureteronephrosis / Spl. Instructions: OMNI 300,60ML / History: . COMPARISON: none TECHNIQUE: Helical CT of the abdomen and pelvis was performed following the administration of intravenous contrast. Axial, coronal and sagittal reformatted images were generated. PQRS compliance statement - One or more of the following individualized dose reduction techniques were utilized for this study: 1. Automated exposure control 2. Adjustment of the mA and/or kV according to patient size 3. Use of iterative reconstruction technique FINDINGS: Lower Chest: Lung bases are clear. Abdomen and Pelvis: No focal liver lesion. Gallbladder is normal. No biliary ductal dilatation. Pancreas, spleen is unremarkable. Adrenal glands are normal. There is infiltration about the left kidney. Moderate left hydronephrosis and hydroureter. Soft tissue infiltration in the region of the cervix. Left nephrostomy tube is seen. Appendix is not seen. Moderate colonic stool content is seen. No small or large bowel dilatation. No bowel obstruction. Pelvic lymphadenopathy is again seen, mildly progressed. Adjacent to the right cecum there is a 2.8 x 2.5 cm mass. Right pelvic chest wall lymph node measures 1.7 x 1.2 cm, previously 1.4 x 1 cm. Bones: No aggressive osseous lesion is seen. IMPRESSION: 1. There is moderate left hydronephrosis and hydroureter to the level of the soft tissue density at the region of the cervix likely cervical cancer. Infiltr ation about the left kidney may be seen with superimposed pyelonephritis, new compared to 05/06/2021. 2. Iliac chain and pelvic sidewall lymphadenopathy is again seen, mildly progressed compared to 05/06/2021. Assessment/Plan Assessment/Plan Left flank plain due to hydronephrosis Accidental removal of left nephrostomy tube Sepsis CARLOS A due to obstructive nephropathy History of cervical and endometrial cancer, partially treated but insurance ran out and she is actively trying to renew that. Admit to hospitalist service for further management Urology consult for replacement of nephrostomy tube Gynecology consult for cervical and endometrial cancer. Continue empiric IV antibiotics Pending urine cultures PO and IV pain control Lovenox for DVT prophylaxis N.p.o. for now CODE STATUS full Discussed with RN and SW Disposition pending evaluation for surgical services DPOA: Sylvester Robbins Justifications for Admission Other Justification RICO CONNER MD Jul 29, 2021 08:19
[2021-07-29] MEDS ORDERED: DOCUSATE SODIUM 100 MG CAPSULE. PO PRN (08:30)
[2021-07-29] MEDS ORDERED: diphenhydrAMINE HCL 25 MG CAPSULE PO PRN ×2 (08:30)
[2021-07-29] MEDS ORDERED: ACETAMINOPHEN 325 MG TABLET. PO PRN (08:30)
[2021-07-29] MEDS ORDERED: ZOLPIDEM 5 MG TABLET. PO PRN (08:30)
[2021-07-29] MEDS ORDERED: DEXTROSE 50% 25 GM / 50ML DISP.SYRIN. IV PRN (08:30)
[2021-07-29] MEDS ORDERED: SENNOSIDES 8.6 MG TABLET PO PRN (08:30)
[2021-07-29] MEDS ORDERED: PROCHLORPERAZINE 10 MG/2 ML VIAL. IV PRN (08:30)
[2021-07-29] MEDS ORDERED: LORazepam 0.5 MG TABLET PO PRN (08:30)
[2021-07-29] MEDS ORDERED: diphenhydrAMINE 50 MG/ML VIAL IVP PRN (08:30)
[2021-07-29 09:26] LABS: PROTHROMBIN TIME PATIENT 12.9 SEC (11.7-14.0)
--- NOTE | 2021-07-29 09:36 | PDOC2 ---
UROLOGY CONSULT Date of Service DATE: 07/29/21 TIME: 09:25 Reason for Consult Reason for Consult: nephrostomy tube Identification/Chief Complaint Chief Complaint flank pain History of Present Illness Reason for Visit: 36yo female with PMH cervical and endometrial cancer in 2019. She declined hysterectomy at that time due to concerns of fertility. It seems she did not receive consistent treatment for this. She developed left obstructive uropathy due to progressing cancer, so left nephrostomy was placed four months ago. She states it has not been changed since, because she cannot afford it. Yesterday at home when she went to stand, her nephrostomy pulled and later came out. In the ER, IR was consulted for replacement of this. This is planned for later this morning. She continues to endorse severe left flank pain, radiating to left abdomen and left lower back. Denies hematuria, fevers, dysuria. Past Medical History Past Medical History cervical cancer Past Surgical History Past Surgical History: Other (left nephrostomy, 03/2021) Family History Family History: No Significant Social History ALCOHOL: none Current Medications Current Medications Current Medications Acetaminophen (Tylenol) 650 mg PRN Q4HRS PRN PO TEMP OVER 100.4F OR MILD PAIN; Start 07/29/21 at 08:30 Ceftriaxone Sodium (Rocephin) 1 gm 1X ONCE IVP Last administered on 07/29/21at 02:00; Start 07/29/21 at 02:00; Stop 07/29/21 at 02:01; Status DC Dextrose (Dextrose 50%-Water Syringe) 12.5 gm PRN Q15MIN PRN IV SEE COMMENTS; Start 07/29/21 at 08:30 Dextrose/Lactated Ringer's 1,000 ml @ 125 mls/hr 1X ONCE IV Last administered on 07/29/21at 03:00; Start 07/29/21 at 03:00; Stop 07/29/21 at 10:59 Dextrose/Lactated Ringer's 1,000 ml @ 125 mls/hr 1X ONCE IV ; Start 07/29/21 at 05:30; Stop 07/29/21 at 13:29 Diphenhydramine HCl (Benadryl) 25 mg PRN Q6HRS PRN IVP ITCHING; Start 07/29/21 at 08:30 Diphenhydramine HCl (Benadryl) 25 mg PRN Q6HRS PRN PO ITCHING; Start 07/29/21 at 08:30 Diphenhydramine HCl (Benadryl) 25 mg PRN QHS PRN PO INSOMNIA, 1st CHOICE; Start 07/29/21 at 08:30 Docusate Sodium (Colace) 100 mg PRN DAILY PRN PO HARD STOOLS; Start 07/29/21 at 08:30 Hydromorphone HCl (Dilaudid) 0.5 mg PRN Q2HRS PRN IVP SEVERE PAIN 7-10 Last administered on 07/29/21at 07:36; Start 07/29/21 at 05:15 Hydromorphone HCl (Dilaudid) 1 mg 1X ONCE IVP Last administered on 07/29/21at 01:06; Start 07/29/21 at 01:30; Stop 07/29/21 at 01:31; Status DC Hydromorphone HCl (Dilaudid) 1 mg 1X ONCE IVP Last administered on 07/29/21at 02:52; Start 07/29/21 at 03:00; Stop 07/29/21 at 03:01; Status DC Info (CONTRAST GIVEN -- Rx MONITORING) 1 each PRN DAILY PRN MC SEE COMMENTS; Start 07/29/21 at 02:00; Stop 07/31/21 at 01:59 Iohexol (Omnipaque 300 Mg/ml) 75 ml 1X ONCE IV ; Start 07/29/21 at 02:00; Stop 07/29/21 at 02:01; Status DC Ketamine HCl (Ketamine) 16 mg 1X ONCE IV Last administered on 07/29/21at 04:24; Start 07/29/21 at 05:00; Stop 07/29/21 at 05:01; Status DC Ketorolac Tromethamine (Toradol 15mg Vial) 15 mg PRN Q6HRS PRN IVP MODERATE PAIN 4-6; Start 07/29/21 at 05:15; Stop 08/03/21 at 05:14 Lorazepam (Ativan Inj) 0.25 mg PRN Q4HRS PRN IV ANXIETY / AGITATION; Start 07/29/21 at 08:30 Lorazepam (Ativan) 0.5 mg PRN Q6HRS PRN PO ANXIETY / AGITATION; Start 07/29/21 at 08:30 Metoclopramide HCl (Reglan Vial) 10 mg PRN Q8HRS PRN IM NAUSEA/VOMITING Last administered on 07/29/21at 07:28; Start 07/29/21 at 07:15 Ondansetron HCl (Zofran) 4 mg 1X ONCE IVP Last administered on 07/29/21at 01:07; Start 07/29/21 at 01:30; Stop 07/29/21 at 01:31; Status DC Ondansetron HCl (Zofran) 4 mg 1X ONCE IVP Last administered on 07/29/21at 04:18; Start 07/29/21 at 04:30; Stop 07/29/21 at 04:31; Status DC Ondansetron HCl (Zofran) 4 mg PRN Q6HRS PRN IVP NAUSEA/VOMITING, 1st CHOICE; Start 07/29/21 at 08:30 Ondansetron HCl (Zofran) 4 mg PRN Q8HRS PRN IVP NAUSEA/VOMITING 1ST CHOICE; Start 07/29/21 at 05:15; Stop 07/30/21 at 05:14 Prochlorperazine Edisylate (Compazine) 10 mg PRN Q6HRS PRN IV NAUSEA/VOMITING, 2nd CHOICE; Start 07/29/21 at 08:30 Sennosides (Senna) 17.2 mg PRN BID PRN PO CONSTIPATION; Start 07/29/21 at 08:30 Zolpidem Tartrate (Ambien) 2.5 mg PRN QHS PRN PO INSOMNIA, 2nd CHOICE; Start 07/29/21 at 08:30 Allergies Allergies: Coded Allergies: haloperidol (Verified Allergy, Severe, 07/29/21) diphenhydramine (Verified Allergy, Intermediate, 07/29/21) fentanyl (Verified Allergy, Intermediate, 07/29/21) morphine (Verified Allergy, Intermediate, 07/29/21) hydromorphone ok prochlorperazine (Verified Allergy, Intermediate, 07/29/21) ROS Review Of Systems: CONSTITUTIONAL: No fever or chills EYES: No recent changes SKIN: No rash or itching CARDIOVASCULAR: No chest pain, syncope, palpitations, or edema RESPIRATORY: No SOB or cough GASTROINTESTINAL: + abd pain NEUROLOGICAL: No headaches or weakness ENDOCRINE: No cold or heat intolerance GENITOURINARY: as per hpi MUSCULOSKELETAL: No back pain or joint pain LYMPHATICS: No enlarged lymph nodes PSYCHIATRIC: No anxiety or depression Physical Exam Physical Exam: General: visibly in pain, curled up on side in bed Eyes: conjunctiva anicteric, eyes full range of motion ENT: moist oral mucosa, normal dentition Neck: Trachea midline Respiratory: unlabored breathing Cardiovascular: no peripheral edema Abdomen: pt refused abdominal exam due to pain Skin: left nephrostomy site no active drainage Psych: anxious Vitals VITALS Vital Signs Date Time Temp Pulse Resp B/P (MAP) Pulse Ox O2 Delivery O2 Flow Rate FiO2 07/29/21 07:36 96 Room Air 07/29/21 07:00 125 20 152/89 (110) 07/29/21 04:45 99.5 99.5 Labs Labs Laboratory Tests Test 07/29/21 01:14 07/29/21 01:50 07/29/21 03:45 White Blood Count 21.6 x10^3/uL (4.0-11.0) Red Blood Count 5.31 x10^6/uL (3.50-5.40) Hemoglobin 14.2 g/dL (12.0-15.5) Hematocrit 42.3 % (36.0-47.0) Mean Corpuscular Volume 80 fL (79-100) Mean Corpuscular Hemoglobin 27 pg (25-35) Mean Corpuscular Hemoglobin Concent 34 g/dL (31-37) Red Cell Distribution Width 14.7 % (11.5-14.5) Platelet Count 496 x10^3/uL (140-400) Neutrophils (%) (Auto) 88 % (31-73) Lymphocytes (%) (Auto) 5 % (24-48) Monocytes (%) (Auto) 7 % (0-9) Eosinophils (%) (Auto) 0 % (0-3) Basophils (%) (Auto) 0 % (0-3) Neutrophils # (Auto) 19.0 x10^3/uL (1.8-7.7) Lymphocytes # (Auto) 1.0 x10^3/uL (1.0-4.8) Monocytes # (Auto) 1.5 x10^3/uL (0.0-1.1) Eosinophils # (Auto) 0.1 x10^3/uL (0.0-0.7) Basophils # (Auto) 0.1 x10^3/uL (0.0-0.2) Sodium Level 136 mmol/L (136-145) Potassium Level 3.9 mmol/L (3.5-5.1) Chloride Level 102 mmol/L (98-107) Carbon Dioxide Level 22 mmol/L (21-32) Anion Gap 12 (6-14) Blood Urea Nitrogen 16 mg/dL (7-20) Creatinine 1.1 mg/dL (0.6-1.0) Estimated GFR (Cockcroft-Gault) 55.6 BUN/Creatinine Ratio 15 (6-20) Glucose Level 124 mg/dL (70-99) Calcium Level 8.7 mg/dL (8.5-10.1) Total Bilirubin 0.3 mg/dL (0.2-1.0) Aspartate Amino Transf (AST/SGOT) 11 U/L (15-37) Alanine Aminotransferase (ALT/SGPT) 20 U/L (14-59) Alkaline Phosphatase 113 U/L (46-116) Troponin I High Sensitivity 4 ng/L (4-50) Total Protein 7.6 g/dL (6.4-8.2) Albumin 3.5 g/dL (3.4-5.0) Albumin/Globulin Ratio 0.9 (1.0-1.7) Serum Test, Qualitative Negative (NEG) Lactic Acid Level 1.4 mmol/L (0.4-2.0) Urine Collection Type Unknown Urine Color (Auto) Light yellow Urine Turbidity Clear Urine pH (Auto) 6.5 (<5.0-8.0) Urine Specific [place] >1.050 (1.000-1.030) Urine Protein (Auto) Negative mg/dL (Negative) Urine Glucose (Auto)(UA) Negative mg/dL (Negative) Urine Ketones (Auto) Negative mg/dL (Negative) Urine Blood (Auto) Trace (Negative) Urine Nitrite Negative (Negative) Urine Bilirubin (Auto) Negative (Negative) Urine Urobilinogen (Auto) Normal mg/dL (Normal) Urine Leukocyte Esterase (Auto) Negative (Negative) Urine RBC 0 /HPF (0-2) Urine WBC Occ /HPF (0-4) Urine Squamous Epithelial Cells Few /LPF Urine Bacteria 0 /HPF (0-FEW) Urine Opiates Screen Pos (NEG) Urine Methadone Screen Neg (NEG) Urine Barbiturates Neg (NEG) Urine Phencyclidine Screen Neg (NEG) Urine Amphetamine/Methamphetamine Neg (NEG) Urine Benzodiazepines Screen Neg (NEG) Urine Cocaine Screen Neg (NEG) Urine Cannabinoids Screen Neg (NEG) Urine Ethyl Alcohol Neg (NEG) Laboratory Tests Test 07/29/21 01:14 07/29/21 01:50 07/29/21 03:45 White Blood Count 21.6 x10^3/uL (4.0-11.0) Red Blood Count 5.31 x10^6/uL (3.50-5.40) Hemoglobin 14.2 g/dL (12.0-15.5) Hematocrit 42.3 % (36.0-47.0) Mean Corpuscular Volume 80 fL (79-100) Mean Corpuscular Hemoglobin 27 pg (25-35) Mean Corpuscular Hemoglobin Concent 34 g/dL (31-37) Red Cell Distribution Width 14.7 % (11.5-14.5) Platelet Count 496 x10^3/uL (140-400) Neutrophils (%) (Auto) 88 % (31-73) Lymphocytes (%) (Auto) 5 % (24-48) Monocytes (%) (Auto) 7 % (0-9) Eosinophils (%) (Auto) 0 % (0-3) Basophils (%) (Auto) 0 % (0-3) Neutrophils # (Auto) 19.0 x10^3/uL (1.8-7.7) Lymphocytes # (Auto) 1.0 x10^3/uL (1.0-4.8) Monocytes # (Auto) 1.5 x10^3/uL (0.0-1.1) Eosinophils # (Auto) 0.1 x10^3/uL (0.0-0.7) Basophils # (Auto) 0.1 x10^3/uL (0.0-0.2) Sodium Level 136 mmol/L (136-145) Potassium Level 3.9 mmol/L (3.5-5.1) Chloride Level 102 mmol/L (98-107) Carbon Dioxide Level 22 mmol/L (21-32) Anion Gap 12 (6-14) Blood Urea Nitrogen 16 mg/dL (7-20) Creatinine 1.1 mg/dL (0.6-1.0) Estimated GFR (Cockcroft-Gault) 55.6 BUN/Creatinine Ratio 15 (6-20) Glucose Level 124 mg/dL (70-99) Calcium Level 8.7 mg/dL (8.5-10.1) Total Bilirubin 0.3 mg/dL (0.2-1.0) Aspartate Amino Transf (AST/SGOT) 11 U/L (15-37) Alanine Aminotransferase (ALT/SGPT) 20 U/L (14-59) Alkaline Phosphatase 113 U/L (46-116) Troponin I High Sensitivity 4 ng/L (4-50) Total Protein 7.6 g/dL (6.4-8.2) Albumin 3.5 g/dL (3.4-5.0) Albumin/Globulin Ratio 0.9 (1.0-1.7) Serum Test, Qualitative Negative (NEG) Lactic Acid Level 1.4 mmol/L (0.4-2.0) Urine Collection Type Unknown Urine Color (Auto) Light yellow Urine Turbidity Clear Urine pH (Auto) 6.5 (<5.0-8.0) Urine Specific [place] >1.050 (1.000-1.030) Urine Protein (Auto) Negative mg/dL (Negative) Urine Glucose (Auto)(UA) Negative mg/dL (Negative) Urine Ketones (Auto) Negative mg/dL (Negative) Urine Blood (Auto) Trace (Negative) Urine Nitrite Negative (Negative) Urine Bilirubin (Auto) Negative (Negative) Urine Urobilinogen (Auto) Normal mg/dL (Normal) Urine Leukocyte Esterase (Auto) Negative (Negative) Urine RBC 0 /HPF (0-2) Urine WBC Occ /HPF (0-4) Urine Squamous Epithelial Cells Few /LPF Urine Bacteria 0 /HPF (0-FEW) Urine Opiates Screen Pos (NEG) Urine Methadone Screen Neg (NEG) Urine Barbiturates Neg (NEG) Urine Phencyclidine Screen Neg (NEG) Urine Amphetamine/Methamphetamine Neg (NEG) Urine Benzodiazepines Screen Neg (NEG) Urine Cocaine Screen Neg (NEG) Urine Cannabinoids Screen Neg (NEG) Urine Ethyl Alcohol Neg (NEG) Images Images FINDINGS: Lower Chest: Lung bases are clear. Abdomen and Pelvis: No focal liver lesion. Gallbladder is normal. No biliary ductal dilatation. Pancreas, spleen is unremarkable. Adrenal glands are normal. There is infiltration about the left kidney. Moderate left hydronephrosis and hydroureter. Soft tissue infiltration in the region of the cervix. Left nephrostomy tube is seen. Appendix is not seen. Moderate colonic stool content is seen. No small or large bowel dilatation. No bowel obstruction. Pelvic lymphadenopathy is again seen, mildly progressed. Adjacent to the right cecum there is a 2.8 x 2.5 cm mass. Right pelvic chest wall lymph node measures 1.7 x 1.2 cm, previously 1.4 x 1 cm. Bones: No aggressive osseous lesion is seen. IMPRESSION: 1. There is moderate left hydronephrosis and hydroureter to the level of the soft tissue density at the region of the cervix likely cervical cancer. Infiltration about the left kidney may be seen with superimposed pyelonephritis, new compared to 05/06/2021. 2. Iliac chain and pelvic sidewall lymphadenopathy is again seen, mildly progressed compared to 05/06/2021. Assessment/Plan Assessment/Plan Left hydronephrosis secondary to extrinsic ureter obstruction Dislodgment of left PCN Plan for replacement of this today with IR Agree with empiric abx D/w pt, need for exchange of PCN q12 weeks, request social work assistance for f/u and to possibly obtain insurance as pt states she cannot afford to f/u. There also seems to be an overall issue with compliance and continuity of care unfortunately. Resource Recovery Specialist/onc to evaluate patient for cervical cancer. THALIA CAPONE Jul 29, 2021 09:36
[2021-07-29] MEDS: ONDANSETRON PF 4 MG/2 ML VIAL. IVP PRN ×3 (10:32→19:36)
--- NOTE | 2021-07-29 10:42 | PDOC2 ---
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 The pt had a nephrostomy tube placed during her last admission in Mar. It was due to come out after [address] in [address]. It fell out last night. After it was loss the pt experienced intense left flank pain. In the ER the pt was found to have a Cr of 1.1, WBC of 21.6. A CT revealed the followin. There is moderate left hydronephrosis and hydroureter to the level of the soft tissue density at the region of the cervix likely cervical cancer. Infiltration about the left kidney may be seen with superimposed pyelonephritis, new compared to 05/06/2021. 2. Iliac chain and pelvic sidewall lymphadenopathy is again seen, mildly progressed compared to 05/06/2021. In 2019, the pt was dxed with cervical and endometrial CA. She states that she was seeing a friends doctor in [facility] Where they had a colpo and was told that she had a CA. She was referred to Dr. Garcia at [facility]. She states that they took out her tubes and took out a piece of her uterus. She was told that along with the cervical CA, she also had uterine CA. She states that they did not perform a hysterectomy b/c she desired to keep her fertility. They discussed chemo, but she really did not want to start. She ultimately ran out of insurance, so it became moot. 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 Not on contraception 7yo / regular SH: 1/2 PPD, no EtOH FH: CAD, brain aneurysm, CA Past Surgical History Past Surgical History: Other (left nephrostomy, 03/2021) Family History Family History: No Significant Social History ALCOHOL: none Current Problem List Problem List Problems Medical Problems: (1) Hydronephrosis of left kidney Status: Acute (2) Left flank pain Status: Acute Current Medications Current Medications Current Medications Ondansetron HCl (Zofran) 4 mg 1X ONCE IVP Last administered on 07/29/21at 01:07; Start 07/29/21 at 01:30; Stop 07/29/21 at 01:31; Status DC Hydromorphone HCl (Dilaudid) 1 mg 1X ONCE IVP Last administered on 07/29/21at 01:06; Start 07/29/21 at 01:30; Stop 07/29/21 at 01:31; Status DC Ceftriaxone Sodium (Rocephin) 1 gm 1X ONCE IVP Last administered on 07/29/21at 02:00; Start 07/29/21 at 02:00; Stop 07/29/21 at 02:01; Status DC Iohexol (Omnipaque 300 Mg/ml) 75 ml 1X ONCE IV ; Start 07/29/21 at 02:00; Stop 07/29/21 at 02:01; Status DC Info (CONTRAST GIVEN -- Rx MONITORING) 1 each PRN DAILY PRN MC SEE COMMENTS; Start 07/29/21 at 02:00; Stop 07/31/21 at 01:59 Dextrose/Lactated Ringer's 1,000 ml @ 125 mls/hr 1X ONCE IV Last administered on 07/29/21at 03:00; Start 07/29/21 at 03:00; Stop 07/29/21 at 10:59 Hydromorphone HCl (Dilaudid) 1 mg 1X ONCE IVP Last administered on 07/29/21at 02:52; Start 07/29/21 at 03:00; Stop 07/29/21 at 03:01; Status DC Ondansetron HCl (Zofran) 4 mg 1X ONCE IVP Last administered on 07/29/21at 04:18; Start 07/29/21 at 04:30; Stop 07/29/21 at 04:31; Status DC Ketamine HCl (Ketamine) 16 mg 1X ONCE IV Last administered on 07/29/21at 04:24; Start 07/29/21 at 05:00; Stop 07/29/21 at 05:01; Status DC Ondansetron HCl (Zofran) 4 mg PRN Q8HRS PRN IVP NAUSEA/VOMITING 1ST CHOICE; Start 07/29/21 at 05:15; Stop 07/30/21 at 05:14 Hydromorphone HCl (Dilaudid) 0.5 mg PRN Q2HRS PRN IVP SEVERE PAIN 7-10 Last administered on 07/29/21at 10:32; Start 07/29/21 at 05:15 Ketorolac Tromethamine (Toradol 15mg Vial) 15 mg PRN Q6HRS PRN IVP MODERATE PAIN 4-6; Start 07/29/21 at 05:15; Stop 08/03/21 at 05:14 Dextrose/Lactated Ringer's 1,000 ml @ 125 mls/hr 1X ONCE IV ; Start 07/29/21 at 05:30; Stop 07/29/21 at 13:29 Metoclopramide HCl (Reglan Vial) 10 mg PRN Q8HRS PRN IM NAUSEA/VOMITING Last administered on 07/29/21at 07:28; Start 07/29/21 at 07:15 Sennosides (Senna) 17.2 mg PRN BID PRN PO CONSTIPATION; Start 07/29/21 at 08:30 Docusate Sodium (Colace) 100 mg PRN DAILY PRN PO HARD STOOLS; Start 07/29/21 at 08:30 Ondansetron HCl (Zofran) 4 mg PRN Q6HRS PRN IVP NAUSEA/VOMITING, 1st CHOICE Last administered on 07/29/21at 10:32; Start 07/29/21 at 08:30 Dextrose (Dextrose 50%-Water Syringe) 12.5 gm PRN Q15MIN PRN IV SEE COMMENTS; Start 07/29/21 at 08:30 Acetaminophen (Tylenol) 650 mg PRN Q4HRS PRN PO TEMP OVER 100.4F OR MILD PAIN; Start 07/29/21 at 08:30 Lorazepam (Ativan) 0.5 mg PRN Q6HRS PRN PO ANXIETY / AGITATION; Start 07/29/21 at 08:30 Lorazepam (Ativan Inj) 0.25 mg PRN Q4HRS PRN IV ANXIETY / AGITATION; Start 07/29/21 at 08:30 Prochlorperazine Edisylate (Compazine) 10 mg PRN Q6HRS PRN IV NAUSEA/VOMITING, 2nd CHOICE; Start 07/29/21 at 08:30 Diphenhydramine HCl (Benadryl) 25 mg PRN Q6HRS PRN IVP ITCHING; Start 07/29/21 at 08:30 Diphenhydramine HCl (Benadryl) 25 mg PRN Q6HRS PRN PO ITCHING; Start 07/29/21 at 08:30 Diphenhydramine HCl (Benadryl) 25 mg PRN QHS PRN PO INSOMNIA, 1st CHOICE; Start 07/29/21 at 08:30 Zolpidem Tartrate (Ambien) 2.5 mg PRN QHS PRN PO INSOMNIA, 2nd CHOICE; Start at 08:30 Active Scripts Active Reglan (Metoclopramide Hcl) 10 Mg Tablet 1 Tab PO TID before food and bedtime Reported Advil (Ibuprofen) 200 Mg Capsule 400 Mg PO PRN TID PRN Advil Pm Caplet (Ibuprofen/Diphenhydramine Cit) 1 Each Tablet 2 Each PO HS Allergies Allergies: Coded Allergies: haloperidol (Verified Allergy, Severe, 07/29/21) diphenhydramine (Verified Allergy, Intermediate, 07/29/21) fentanyl (Verified Allergy, Intermediate, 07/29/21) morphine (Verified Allergy, Intermediate, 07/29/21) hydromorphone ok prochlorperazine (Verified Allergy, Intermediate, 07/29/21) Physical Exam General: Alert, Oriented X3, Cooperative, No acute distress HEENT: PERRLA, Mucous membr. moist/pink Lungs: Clear to auscultation, Normal air movement Heart: Regular rate, Normal S1, Normal S2, No murmurs Abdomen: Normal bowel sounds, Soft, No tenderness, No hepatosplenomegaly, No masses Extremities: No clubbing, No cyanosis, No edema, Normal pulses, No tenderness/swelling Skin: No rashes, No breakdown Neuro: Normal gait, Normal speech, Normal tone, Sensation intact, Reflexes 2+ Psych/Mental Status: Mental status NL, Mood NL Vitals VITALS Vital Signs Date Time Temp Pulse Resp B/P (MAP) Pulse Ox O2 Delivery O2 Flow Rate FiO2 07/29/21 08:30 Room Air 07/29/21 07:36 96 07/29/21 07:00 125 20 152/89 (110) 07/29/21 04:45 99.5 99.5 Labs Labs Laboratory Tests Test 07/29/21 01:14 07/29/21 01:50 07/29/21 03:45 07/29/21 09:05 White Blood Count 21.6 x10^3/uL (4.0-11.0) Red Blood Count 5.31 x10^6/uL (3.50-5.40) Hemoglobin 14.2 g/dL (12.0-15.5) Hematocrit 42.3 % (36.0-47.0) Mean Corpuscular Volume 80 fL (79-100) Mean Corpuscular Hemoglobin 27 pg (25-35) Mean Corpuscular Hemoglobin Concent 34 g/dL (31-37) Red Cell Distribution Width 14.7 % (11.5-14.5) Platelet Count 496 x10^3/uL (140-400) Neutrophils (%) (Auto) 88 % (31-73) Lymphocytes (%) (Auto) 5 % (24-48) Monocytes (%) (Auto) 7 % (0-9) Eosinophils (%) (Auto) 0 % (0-3) Basophils (%) (Auto) 0 % (0-3) Neutrophils # (Auto) 19.0 x10^3/uL (1.8-7.7) Lymphocytes # (Auto) 1.0 x10^3/uL (1.0-4.8) Monocytes # (Auto) 1.5 x10^3/uL (0.0-1.1) Eosinophils # (Auto) 0.1 x10^3/uL (0.0-0.7) Basophils # (Auto) 0.1 x10^3/uL (0.0-0.2) Sodium Level 136 mmol/L (136-145) Potassium Level 3.9 mmol/L (3.5-5.1) Chloride Level 102 mmol/L (98-107) Carbon Dioxide Level 22 mmol/L (21-32) Anion Gap 12 (6-14) Blood Urea Nitrogen 16 mg/dL (7-20) Creatinine 1.1 mg/dL (0.6-1.0) Estimated GFR (Cockcroft-Gault) 55.6 BUN/Creatinine Ratio 15 (6-20) Glucose Level 124 mg/dL (70-99) Calcium Level 8.7 mg/dL (8.5-10.1) Total Bilirubin 0.3 mg/dL (0.2-1.0) Aspartate Amino Transf (AST/SGOT) 11 U/L (15-37) Alanine Aminotransferase (ALT/SGPT) 20 U/L (14-59) Alkaline Phosphatase 113 U/L (46-116) Troponin I High Sensitivity 4 ng/L (4-50) Total Protein 7.6 g/dL (6.4-8.2) Albumin 3.5 g/dL (3.4-5.0) Albumin/Globulin Ratio 0.9 (1.0-1.7) Serum Test, Qualitative Negative (NEG) Lactic Acid Level 1.4 mmol/L (0.4-2.0) Urine Collection Type Unknown Urine Color (Auto) Light yellow Urine Turbidity Clear Urine pH (Auto) 6.5 (<5.0-8.0) Urine Specific [place] >1.050 (1.000-1.030) Urine Protein (Auto) Negative mg/dL (Negative) Urine Glucose (Auto)(UA) Negative mg/dL (Negative) Urine Ketones (Auto) Negative mg/dL (Negative) Urine Blood (Auto) Trace (Negative) Urine Nitrite Negative (Negative) Urine Bilirubin (Auto) Negative (Negative) Urine Urobilinogen (Auto) Normal mg/dL (Normal) Urine Leukocyte Esterase (Auto) Negative (Negative) Urine RBC 0 /HPF (0-2) Urine WBC Occ /HPF (0-4) Urine Squamous Epithelial Cells Few /LPF Urine Bacteria 0 /HPF (0-FEW) Urine Opiates Screen Pos (NEG) Urine Methadone Screen Neg (NEG) Urine Barbiturates Neg (NEG) Urine Phencyclidine Screen Neg (NEG) Urine Amphetamine/Methamphetamine Neg (NEG) Urine Benzodiazepines Screen Neg (NEG) Urine Cocaine Screen Neg (NEG) Urine Cannabinoids Screen Neg (NEG) Urine Ethyl Alcohol Neg (NEG) Prothrombin Time 12.9 SEC (11.7-14.0) Prothromb Time International Ratio 1.0 (0.8-1.1) Laboratory Tests Test 07/29/21 01:14 07/29/21 01:50 07/29/21 03:45 07/29/21 09:05 White Blood Count 21.6 x10^3/uL (4.0-11.0) Red Blood Count 5.31 x10^6/uL (3.50-5.40) Hemoglobin 14.2 g/dL (12.0-15.5) Hematocrit 42.3 % (36.0-47.0) Mean Corpuscular Volume 80 fL (79-100) Mean Corpuscular Hemoglobin 27 pg (25-35) Mean Corpuscular Hemoglobin Concent 34 g/dL (31-37) Red Cell Distribution Width 14.7 % (11.5-14.5) Platelet Count 496 x10^3/uL (140-400) Neutrophils (%) (Auto) 88 % (31-73) Lymphocytes (%) (Auto) 5 % (24-48) Monocytes (%) (Auto) 7 % (0-9) Eosinophils (%) (Auto) 0 % (0-3) Basophils (%) (Auto) 0 % (0-3) Neutrophils # (Auto) 19.0 x10^3/uL (1.8-7.7) Lymphocytes # (Auto) 1.0 x10^3/uL (1.0-4.8) Monocytes # (Auto) 1.5 x10^3/uL (0.0-1.1) Eosinophils # (Auto) 0.1 x10^3/uL (0.0-0.7) Basophils # (Auto) 0.1 x10^3/uL (0.0-0.2) Sodium Level 136 mmol/L (136-145) Potassium Level 3.9 mmol/L (3.5-5.1) Chloride Level 102 mmol/L (98-107) Carbon Dioxide Level 22 mmol/L (21-32) Anion Gap 12 (6-14) Blood Urea Nitrogen 16 mg/dL (7-20) Creatinine 1.1 mg/dL (0.6-1.0) Estimated GFR (Cockcroft-Gault) 55.6 BUN/Creatinine Ratio 15 (6-20) Glucose Level 124 mg/dL (70-99) Calcium Level 8.7 mg/dL (8.5-10.1) Total Bilirubin 0.3 mg/dL (0.2-1.0) Aspartate Amino Transf (AST/SGOT) 11 U/L (15-37) Alanine Aminotransferase (ALT/SGPT) 20 U/L (14-59) Alkaline Phosphatase 113 U/L (46-116) Troponin I High Sensitivity 4 ng/L (4-50) Total Protein 7.6 g/dL (6.4-8.2) Albumin 3.5 g/dL (3.4-5.0) Albumin/Globulin Ratio 0.9 (1.0-1.7) Serum Test, Qualitative Negative (NEG) Lactic Acid Level 1.4 mmol/L (0.4-2.0) Urine Collection Type Unknown Urine Color (Auto) Light yellow Urine Turbidity Clear Urine pH (Auto) 6.5 (<5.0-8.0) Urine Specific [place] >1.050 (1.000-1.030) Urine Protein (Auto) Negative mg/dL (Negative) Urine Glucose (Auto)(UA) Negative mg/dL (Negative) Urine Ketones (Auto) Negative mg/dL (Negative) Urine Blood (Auto) Trace (Negative) Urine Nitrite Negative (Negative) Urine Bilirubin (Auto) Negative (Negative) Urine Urobilinogen (Auto) Normal mg/dL (Normal) Urine Leukocyte Esterase (Auto) Negative (Negative) Urine RBC 0 /HPF (0-2) Urine WBC Occ /HPF (0-4) Urine Squamous Epithelial Cells Few /LPF Urine Bacteria 0 /HPF (0-FEW) Urine Opiates Screen Pos (NEG) Urine Methadone Screen Neg (NEG) Urine Barbiturates Neg (NEG) Urine Phencyclidine Screen Neg (NEG) Urine Amphetamine/Methamphetamine Neg (NEG) Urine Benzodiazepines Screen Neg (NEG) Urine Cocaine Screen Neg (NEG) Urine Cannabinoids Screen Neg (NEG) Urine Ethyl Alcohol Neg (NEG) Prothrombin Time 12.9 SEC (11.7-14.0) Prothromb Time International Ratio 1.0 (0.8-1.1) Assessment/Plan Assessment/Plan Assessment: 36y with Left flank pain Recommendations: 1.) Left flank pain nephrostomy tube out of place. IR consulted. 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 Surgery was performed at [facility]. States had fertility sparing tx, but unclear what surgery they performed 5.) HTN severe, has been untxed for some time. Does not have a PCP 6.) DM type II FSBS management per primary team 7.) Asthma management per primary team 8.) Migraines 9.) Anxiety 10.) Tob use 11.) Social may be insurance coverage available with her CA dx, social work consulted 12.) Will cont to follow ANAY HATHAWAY MD Jul 29, 2021 10:42
[2021-07-29] MEDS ORDERED: LIDOCAINE WITH 8.4% SOD BICARB 3 ML DISP.SYRIN. ONE (11:31)
[2021-07-29] MEDS ORDERED: IODIXANOL 320 MG/ML 50ML VIAL. ONE (11:40)
[2021-07-29] MEDS ORDERED: IODIXANOL 320 MG/ML 100 ML VIAL. IART ONE (12:00)
[2021-07-29] MEDS ORDERED: ceFAZolin SODIUM IV Push 1 GM VIAL. IVP PRN (12:00)
[2021-07-29] MEDS ORDERED: ceFAZolin SODIUM IV Push 1 GM VIAL. IVP ONE (12:00)
[2021-07-29] MEDS ORDERED: LIDOCAINE WITH 8.4% SOD BICARB 3 ML DISP.SYRIN. IJ ONE (12:00)
[2021-07-29] MEDS ORDERED: ONDANSETRON PF 4 MG/2 ML VIAL. ONE (12:05)
[2021-07-29] MEDS ORDERED: SUCCINYLCHOLINE 200 MG/10 ML VIAL. ONE (12:30)
[2021-07-29] MEDS ORDERED: DEXAMETHASONE SOD PHOS 20 MG/5 ML VIAL. ONE (12:30)
--- NOTE | 2021-07-29 12:34 | NUR ---
SW following. Discussed with RN, pt from home with family, room air, NPO. Pt getting nephrostomy tube replaced. Urology and Landscape Photographer following. Med Assist following for self pay status. SW will continue to follow.
[2021-07-29] MEDS ORDERED: DEXMEDETOMIDINE 200 MCG/2 ML VIAL. ONE (13:24)
[2021-07-29] MEDS ORDERED: IODIXANOL 320 MG/ML 50ML VIAL. IV ONE (13:45)
[2021-07-29] MEDS ORDERED: IV RINGERS,LACTATED 1000ML 1,000 ML IV SCH (14:45)
[2021-07-29] MEDS ORDERED: IV NORMAL SALINE 1000ML BAG 1,000 ML IV ONE (15:15)
[2021-07-29] MEDS ORDERED: oxyCODONE/APAP 5/325 1 TAB TABLET PO PRN ×2 (16:45)
[2021-07-30] MEDS: HYDROmorphone 2 MG/ML INJ. IVP PRN (02:41)
[2021-07-30 03:00] VITALS: BP 116/78
[2021-07-30 06:46] LABS: BASO # 0.1 x10^3/uL (0.0-0.2); BASO % 0 % (0-3); EOS % 0 % (0-3); HEMATOCRIT 37.1 % (36.0-47.0); LYMPH # 1.1 x10^3/uL (1.0-4.8); LYMPH % 4 % (24-48); MEAN CORPUSCULAR HEMOGLOBIN 26 pg (25-35); MEAN CORPUSCULAR HGB CONC 32 g/dL (31-37); MEAN CORPUSCULAR VOLUME 82 fL (79-100); MONO # 1.6 x10^3/uL (0.0-1.1); MONO % 6 % (0-9); NEUT # 26.4 x10^3/uL (1.8-7.7); NEUT % 90 % (31-73); PLATELET COUNT 425 x10^3/uL (140-400); RED BLOOD COUNT 4.55 x10^6/uL (3.50-5.40); RED CELL DISTRIBUTION WIDTH 14.6 % (11.5-14.5); WHITE BLOOD COUNT 29.2 x10^3/uL (4.0-11.0)
[2021-07-30 06:54] LABS: CALCIUM 9.2 mg/dL (8.5-10.1); CREATININE 0.9 mg/dL (0.6-1.0); GFR 70.1; POTASSIUM 4.2 mmol/L (3.5-5.1)
[2021-07-30 07:00] VITALS: BP 108/69
[2021-07-30 07:25] LABS: % BANDS 12 % (0-9); % LYMPHS 3 % (24-48); % MONOS 3 % (0-10); % SEGS 82 % (35-66)
[2021-07-30 07:26] LABS: PLT ESTIMATE INCREASED (ADEQUATE)
[2021-07-30] MEDS ORDERED: cefTRIAXone IV Push 1 GM VIAL. IVP ONE (08:00)
[2021-07-30] MEDS ORDERED: OXYC1TAB15 PO (10:46)
--- NOTE | 2021-07-30 10:48 | DISCH ---
DISCHARGE INSTRUCTIONS Condition on Discharge Condition on Discharge: Stable Activity After Discharge Activity Instructions for Disc: Activity as tolerated Lifting Instructions after Dis: No heavy lifting Exercise Instruction after Dis: Walk 30 min, 3 x per week Driving Instructions after Dis: No driving for 2 weeks Follow-Up Follow up with: PCP within 2 weeks of discharge Follow Up With: Urology to exchange out your nephrostomy tube every 12 weeks RICO CONNER MD Jul 30, 2021 10:48
[2021-07-30 11:00] VITALS: BP 102/68
--- NOTE | 2021-07-30 11:34 | NUR ---
SS following for discharge planning. SS reviewed pt chart and discussed with pt RN. Pt is from home and is currently on room air. COVID19 negative. Self pay. Med Assist following. Discharge order on the chart for home with self care.
--- NOTE | 2021-07-30 14:11 | PDOC ---
CERAMIC PAINTER PROGRESS NOTE Date of Service: DATE: 07/30/21 TIME: 14:10 Subjective: Pt with some pain still but it is improved Objective: Vital Signs: Vital Signs Date Time Temp Pulse Resp B/P (MAP) Pulse Ox O2 Delivery O2 Flow Rate FiO2 07/29/21 07:00 125 20 152/89 (110) 93 Room Air 07/29/21 13:55 97.9 10.0 97.9 Vital Signs Date Time Temp Pulse Resp B/P (MAP) Pulse Ox O2 Delivery O2 Flow Rate FiO2 07/30/21 11:00 98.0 97 18 102/68 (79) 95 Room Air 98.0 07/29/21 14:52 10.0 Labs: Laboratory Tests Test 07/30/21 06:15 White Blood Count 29.2 x10^3/uL (4.0-11.0) H Red Blood Count 4.55 x10^6/uL (3.50-5.40) Hemoglobin 12.0 g/dL (12.0-15.5) Hematocrit 37.1 % (36.0-47.0) Mean Corpuscular Volume 82 fL (79-100) Mean Corpuscular Hemoglobin 26 pg (25-35) Mean Corpuscular Hemoglobin Concent 32 g/dL (31-37) Red Cell Distribution Width 14.6 % (11.5-14.5) H Platelet Count 425 x10^3/uL (140-400) H Neutrophils (%) (Auto) 90 % (31-73) H Lymphocytes (%) (Auto) 4 % (24-48) L Monocytes (%) (Auto) 6 % (0-9) Eosinophils (%) (Auto) 0 % (0-3) Basophils (%) (Auto) 0 % (0-3) Neutrophils # (Auto) 26.4 x10^3/uL (1.8-7.7) H Lymphocytes # (Auto) 1.1 x10^3/uL (1.0-4.8) Monocytes # (Auto) 1.6 x10^3/uL (0.0-1.1) H Eosinophils # (Auto) 0.0 x10^3/uL (0.0-0.7) Basophils # (Auto) 0.1 x10^3/uL (0.0-0.2) Segmented Neutrophils % 82 % (35-66) H Band Neutrophils % 12 % (0-9) H Lymphocytes % 3 % (24-48) L Monocytes % 3 % (0-10) Platelet Estimate Increased (ADEQUATE) Sodium Level 135 mmol/L (136-145) L Potassium Level 4.2 mmol/L (3.5-5.1) Chloride Level 102 mmol/L (98-107) Carbon Dioxide Level 24 mmol/L (21-32) Anion Gap 9 (6-14) Blood Urea Nitrogen 14 mg/dL (7-20) Creatinine 0.9 mg/dL (0.6-1.0) Estimated GFR (Cockcroft-Gault) 70.1 Glucose Level 119 mg/dL (70-99) H Calcium Level 9.2 mg/dL (8.5-10.1) Phosphorus Level 3.0 mg/dL (2.6-4.7) Magnesium Level 2.0 mg/dL (1.8-2.4) Laboratory Tests 07/30/21 06:15 Laboratory Tests 07/30/21 06:15 Laboratory Tests 07/30/21 06:15 Physical Exam: GENERAL: No apparent distress. Alert and oriented. HEENT: Head normocephalic, atraumatic. NECK: Supple LUNGS: Clear to auscultation. HEART: RRR, S1, S2 present, pulses intact ABDOMEN: Soft, positive bowel sounds. EXTREMITIES: No cyanosis or edema. NEUROLOGIC: Normal speech, normal tone PSYCHIATRIC: Normal affect, normal mood. SKIN: No ulceration. Assessment & Plan: A/P 36y with Left flank pain 1.) Left flank pain nephrostomy tube out of place. 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 Surgery was performed at [facility]. States had fertility sparing tx, but unclear what surgery they performed 5.) HTN severe, has been untxed for some time. Does not have a PCP 6.) DM type II FSBS management per primary team 7.) Asthma management per primary team 8.) Migraines 9.) Anxiety 10.) Tob use 11.) Social may be insurance coverage available with her CA dx, social work consulted 12.) Will cont to follow ANAY HATHAWAY MD Jul 30, 2021 14:10
--- NOTE | 2021-07-30 14:47 | NUR ---
Pt left unit at 1445 by wheelchair via private vehicle. Pt's IV removed without complications, VSS. Discharge paperwork and follow-up discussed with pt. Pt verbalized understanding.
--- NOTE | 2021-07-30 17:15 | RAD ---
Replacement of a left nephrostomy tube through pre-existing tract 07/29/2021 INDICATION: Inadvertent removal of previously placed, left nephrostomy Consent: The procedure was explained in its entirety to the patient or the patients designated repres entative by a member of the treatment team, including a discussion of the risks, benefits and commonl y accepted alternatives to the procedure, as well as the expected consequences of no therapy whatsoev er. Discussion of the risks included, but was not limited to, those that are most frequent and thos e that are rare but possibly severe or life-threatening, as well as the possibility of unforeseen com plications. The left flank was prepped and draped using Current guideline approved cutaneous antisepsis, a large sterile sheet to establish a sterile field. Additionally the pump machine operator wore a hat, mask, sterile glove s, a sterile gown during the procedure as well as practiced acceptable hand hygiene prior to the proc edure. Under fluoroscopic guidance a guidewire and catheter were manipulated through subcutaneous tract into the renal pelvis. This was confirmed with the administration of contrast. A guidewire was advanced i nto the ureter. A new 8 Divehi nephrostomy tube was advanced and formed in the renal pelvis. Its posi tion was confirmed with nephrostogram. The catheter was secured in place. Sterile dressings were appl ied. No immediate complications were identified. Fluoroscopy time 1.1 minutes Dose area product 5 Newton centimeter squared The anesthesia department provided anesthesia during the case. Impression: Replacement of left nephrostomy tube through pre-existing tract Electronically signed by: Adarsh Orr MD (07/30/2021 5:13 PM) [id number]
--- NOTE | 2021-08-03 16:09 | PDOC3 ---
Team Health-Discharge Summary Date of Admission: Date of Admission: Jul 29, 2021 Date of Discharge: Date of Discharge: Jul 30, 2021 Discharge Diagnosis: Discharge Diagnosis: Left flank plain due to hydronephrosis Accidental removal of left nephrostomy tube Sepsis CARLOS A due to obstructive nephropathy History of cervical and endometrial cancer, partially treated but insurance ran out and she is actively trying to renew that. Consults: Consults: Per gynecology: A/P 36y with Left flank pain 1.) Left flank pain nephrostomy tube out of place. 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 Surgery was performed at [facility]. States had fertility sparing tx, but unclear what surgery they performed 5.) HTN severe, has been untxed for some time. Does not have a PCP 6.) DM type II FSBS management per primary team 7.) Asthma management per primary team 8.) Migraines 9.) Anxiety 10.) Tob use 11.) Social may be insurance coverage available with her CA dx, social work consulted 12.) Will cont to follow Per urology: Left hydronephrosis secondary to extrinsic ureter obstruction Dislodgment of left PCN Plan for replacement of this today with IR Agree with empiric abx D/w pt, need for exchange of PCN q12 weeks, request social work assistance for f/u and to possibly obtain insurance as pt states she cannot afford to f/u. There also seems to be an overall issue with compliance and continuity of care unfortunately. Energy Administrator/onc to evaluate patient for cervical cancer. Procedures: Procedures: Nephrostomy tube placement Hospital Course: Hospital Course: 36-year-old female with past medical history of cervical and endometrial cancer diagnosed in 2018 and [facility]. Patient did have a fertility sparing surgery but did not undergo chemotherapy due to insurance issues. She comes to the ED today after dislodgment of her percutaneous nephrostomy tube. She describes left flank pain. Denies any fevers, nausea vomiting, diarrhea, hematuria or active bleeding. This was a nephrostomy tube placed in March 2021 at this facility for hydronephrosis due to left ureteral obstruction secondary to progression of her cancer. Upon my examination patient was lying in bed resting comfortably, when I attempted a physical exam she immediately was guarding her entire body due to pain. She describes her pain as generalized all over her body not just her flank area. Pain is 10 out of 10 at this time. Patient seen by urology and recommended IR for nephrostomy tube placement. Patient underwent nephrostomy tube placement with adequate urine output trend. Patient tolerated procedure well and her pain significantly improved. She was also evaluated by gynecology in which he recommended to follow-up very closely with gynecology oncology once insurance has been figured out with the patient. Disposition: Disposition/Orders: D/C to Home Activity: Activity: Resume previous activity Diet: Diet: Regular Medications: Home Meds Active Scripts Oxycodone/Apap 5-325 (PERCOCET 5-325 MG TABLET ) 1 Each Tablet, 1 TAB PO PRN Q6-8HRS PRN for PAIN for 3 Days, #12 TAB Prov:RICO CONNER MD 07/30/21 Metoclopramide Hcl (REGLAN) 10 Mg Tablet, 1 TAB PO TID for vomiting, #20 TAB 0 Refills before food and bedtime Prov:ROX WHEELER DO 05/06/21 Reported Medications Ibuprofen (ADVIL) 200 Mg Capsule, 400 MG PO PRN TID PRN for PAIN, CAP 07/29/21 Ibuprofen/Diphenhydramine Cit (ADVIL PM CAPLET) 1 Each Tablet, 2 EACH PO HS for isomnia, TAB 04/04/21 Scheduled Ibuprofen/Diphenhydramine Cit (Advil Pm Caplet), 2 EACH PO HS, (Reported) Metoclopramide Hcl (Reglan), 1 TAB PO TID Scheduled PRN Ibuprofen (Advil), 400 MG PO PRN TID PRN for PAIN, (Reported) Oxycodone/Apap 5-325 (Percocet 5-325 Mg Tablet ), 1 TAB PO PRN Q6-8HRS PRN for PAIN Total Time: Total Time: Total time spent was 35 minutes in preparing scripts, discharge planning with SWI and RN and preparing this discharge summary Patient seen and examined on day of discharge. No acute abnormal findings. Justicifation of Admission Dx: Justifications for Admission: Justification of Admission Dx: Yes RICO CONNER MD Aug 03, 2021 16:09
== END 2021-07-30 14:48 | disposition home or self-care (01) | DRG 698 ==
LOC: ER 00:46 → 5 NORTH 03:01
PROVIDERS: ADMIT Internal Medicine; ATTEND Internal Medicine
PROC: 0T9130Z Drainage of Left Kidney with Drainage Device, Percutaneous Approach (ICD-10-PCS; principal; 2021-07-29 12:00)
DX: T83.022A Displacement of nephrostomy catheter, initial encounter (principal); A41.9 Sepsis, unspecified organism; N13.30 Unspecified hydronephrosis; N17.9 Acute kidney failure, unspecified; N13.1 Hydronephrosis with ureteral stricture, not elsewhere classified; N13.8 Other obstructive and reflux uropathy; Z90.710 Acquired absence of both cervix and uterus; C53.9 Malignant neoplasm of cervix uteri, unspecified; C54.1 Malignant neoplasm of endometrium; E11.9 Type 2 diabetes mellitus without complications; F17.210 Nicotine dependence, cigarettes, uncomplicated; I10 Essential (primary) hypertension; J45.909 Unspecified asthma, uncomplicated; Z82.49 Family history of ischemic heart disease and other diseases of the circulatory system; Z85.41 Personal history of malignant neoplasm of cervix uteri; Z85.42 Personal history of malignant neoplasm of other parts of uterus; F41.9 Anxiety disorder, unspecified; G43.909 Migraine, unspecified, not intractable, without status migrainosus
CPT/HCPCS: 36415; 50432; 74177; 80048; 80053; 80307; 81001; 83605; 83735; 84100; 84484; 84703; 85007; 85025; 85610; 87040; 87077; 87086; 87186; 87426; 93005; 96361; 96374; 96375; 96376; C1769; J0330; J0690; J0696; J1100; J1170; J1644; J2405; J2765; J3490; J7030; J7121; Q9967; 99285-25; G0378